=== PATIENT | male | born 1940 | race African-American/Black ===

== ENCOUNTER 2018-01-08 15:27 | Inpatient (IN) | payer MEDICARE, MEDICAID ==
[~2018-01-08] VITALS: Ht 182.9 cm; Wt 90.7 kg
[2018-01-08] VITALS (7 sets, daily range): BP systolic 86–129; BP diastolic 51–96
--- NOTE | 2018-01-08 15:37 | Emergency Room Report ---
History of Present Illness General Chief Complaint: Altered Level of Consciousness Source: Patient, EMS Present Illness HPI The patient presents with decreased level of consciousness. Allegedly he fell but EMS allege that at [facility] they claim he was assisted to the ground. They found him with snoring respirations and decreased responsiveness. He was given 2 mg of Narcan in the field. Accu-Chek was 111. His respirations improved is also his level of consciousness. They also found a blood pressure of 80 systolic and gave him a fluid bolus. Twelve-lead showed no injury. The patient admits to taking pain medication. He denies having pain is this time. The patient has a history of schizophrenia and is on psychiatric medications and also medicines for high blood pressure. No NVD, dyspnea, chest pain, dysuria, rashes, headache. Allergies: Coded Allergies: PENICILLINS (Verified Allergy, Unknown, 01/08/18) Patient History Past Medical History: see triage record Social History: Reports: smoking Social History Narrative assisted living Reviewed Nursing Documentation: PMH: Agreed, PSxH: Agreed Nursing Documentation-PMH Past Medical History: No History, Except For Hx Hypertension: Yes History Of Psychiatric Problem: Yes - schizophrenia, dementia Review of Systems All Other Systems: negative except mentioned in HPI - history somewhat suspect Physical Exam Vital Signs Date Time Temp Pulse Resp B/P (MAP) Pulse Ox O2 Delivery O2 Flow Rate FiO2 01/08/18 15:23 96.1 18 106/60 99 Room Air 96.1 Sp02 EP Interpretation: reviewed, normal General Appearance: well appearing, no apparent distress, GCS 15 Head: normocephalic, atraumatic Eyes: bilateral eye PERRL, bilateral eye Scleral Injection ENT: moist mucus membranes - poor dentition Neck: supple, no bony tend Respiratory: chest non-tender, lungs clear, normal breath sounds Cardiovascular #1: regular rate, rhythm Cardiovascular #2: 2+ radial (R) Gastrointestinal: normal inspection, normal bowel sounds, non tender, no mass, non-distended Musculoskeletal: back normal, normal range of motion Neurologic: alert, DTRs symmetric, sensory intact, speech normal, motor weakness - lower extremities bilaterally - no unilateral weakness, oriented - X2 Psychiatric: depressed affect Skin: normal inspection, warm/dry Medical Decision Making Diagnostic Impression: Primary Impression: Altered level of consciousness Additional Impressions: Hypotension Qualified Codes: I95.89 - Other hypotension Hypokalemia Renal insufficiency Elevated lactic acid level Elevated TSH ER Course Patient presents with altered level of consciousness improved with Narcan however he also was hypotensive. Differential includes head bleeds, acute myocardial infarction, sepsis, volume depletion, medication excess, acute bleeding amongst others. No unilateral weakness (LE weakness alleged chronic). Evaluation will be with EKG, CT of the head, chest x-ray and labs. He is afebrile and blood cultures are not ordered however lactate is ordered. The patient will be treated with IV hydration. He is alert at this time. Based on this event and the fact he was hypotensive he needs admission to the hospital. Response to narcan suggests narcotic involvement which needs to be corroborated with urine tox. Other causes of transient stupor include syncope from hypotension. No observed seizure. Due to schizophrenia, history is difficult to ascertain from patient. BP better with hydration. Elevated lactate. Patient without infectious source (urine pending). Patient refuses [place], cath or to give urine. Normal WBC, mild anemia (patient refuses rectal). Potassium low with renal insufficiency. Improved with IV hydration. Still denies pain. Patient admit telemetry, Dr. Howard. Urine late return with some pyuria, nitrite negative and positive ketosis. Laboratory Tests Test 01/08/18 15:50 01/08/18 16:15 01/08/18 19:20 Prothrombin Time 11.3 SEC (9.30-11.50) Prothrombin Time INR 1.1 (0.9-1.1) PTT 23 SEC (23-33) Sodium Level 144 MMOL/L (136-145) Potassium Level 2.9 MMOL/L (3.5-5.1) L Chloride Level 106 MMOL/L (98-107) Carbon Dioxide Level 28 MMOL/L (21-32) Anion Gap 10 mmol/L (5-15) Blood Urea Nitrogen 15 mg/dL (7-18) Creatinine 1.6 MG/DL (0.55-1.30) H Estimate Glomerular Filtration Rate mL/min (>60) Glucose Level 118 MG/DL (74-106) H Lactic Acid Level 4.30 mmol/L (0.66-2.22) H Pending Calcium Level 8.2 MG/DL (8.5-10.1) L Total Bilirubin 0.5 MG/DL (0.2-1.0) Aspartate Amino Transferase (AST) 55 U/L (15-37) H Alanine Aminotransferase (ALT) 48 U/L (12-78) Alkaline Phosphatase 60 U/L (46-116) Ammonia 27 umol/L (11-32) Total Creatine Kinase 189 U/L (26-308) Troponin I 0.021 ng/mL (0.000-0.056) Pro-B-Type Natriuretic Peptide 286 pg/mL (0-125) H Total Protein 6.9 G/DL (6.4-8.2) Albumin 2.9 G/DL (3.4-5.0) L Globulin 4.0 g/dL Albumin/Globulin Ratio 0.7 (1.0-2.7) L Thyroid Stimulating Hormone (TSH) 5.838 uiU/mL (0.358-3.740) Salicylates Level 2.2 ug/mL (2.8-20) L Acetaminophen Level < 2 MCG/ML (10-30) L Serum Alcohol < 3 mg/dL White Blood Count 8.6 K/UL (4.8-10.8) Red Blood Count 4.05 M/UL (4.70-6.10) L Hemoglobin 12.9 G/DL (14.2-18.0) L Hematocrit 38.5 % (42.0-52.0) L Mean Corpuscular Volume 95 FL (80-99) Mean Corpuscular Hemoglobin 31.7 PG (27.0-31.0) H Mean Corpuscular Hemoglobin Concent 33.4 G/DL (32.0-36.0) Red Cell Distribution Width 12.0 % (11.6-14.8) Platelet Count 173 K/UL (150-450) Mean Platelet Volume 6.8 FL (6.5-10.1) Neutrophils (%) (Auto) 82.2 % (45.0-75.0) H Lymphocytes (%) (Auto) 10.1 % (20.0-45.0) L Monocytes (%) (Auto) 7.3 % (1.0-10.0) Eosinophils (%) (Auto) 0.2 % (0.0-3.0) Basophils (%) (Auto) 0.3 % (0.0-2.0) EKG Diagnostic Results Rate: normal Rhythm: NSR ST Segments: no acute changes Rhythm Strip Diag. Results EP Interpretation: yes Rhythm: NSR, no PVC's, no ectopy Chest X-Ray Diagnostic Results Chest X-Ray Diagnostic Results : Chest X-Ray Ordered: Yes # of Views/Limited/Complete: 1 View Indication: Other EP Interpretation: Yes Interpretation: no consolidation, no effusion, no pneumothorax Impression: Other Electronically Signed by: Electronically signed by Nash Correa MD CT/MRI/US Diagnostic Results CT/MRI/US Diagnostic Results : Imaging Test Ordered: head Impression no mass, bleed or fx Last Vital Signs Date Time Temp Pulse Resp B/P (MAP) Pulse Ox O2 Delivery O2 Flow Rate FiO2 01/09/18 00:00 99.0 94 20 127/78 95 Room Air 99.0 Status: improved Disposition: ADMITTED INPATIENT Condition: Serious Nash Correa M.D. Jan 08, 2018 15:37
[2018-01-08] MEDS ORDERED: VITAMIN D1000 UNI1 ORAL (15:43)
[2018-01-08] MEDS ORDERED: RISPERDAL2 MG ORAL (15:43)
[2018-01-08] MEDS ORDERED: METFORMIN HCL500 M1 ORAL (15:43)
[2018-01-08] MEDS ORDERED: AMLODIPINE BES2.5 MG ORAL (15:43)
[2018-01-08] MEDS ORDERED: ASPIR-LOW81 MG ORAL (15:43)
[2018-01-08] MEDS ORDERED: DOCUSATE SODIU100 MG ORAL (15:43)
[2018-01-08 16:22] LABS: INR 1.1 (0.9-1.1)
[2018-01-08 16:26] LABS: ANION GAP 10 mmol/L (5-15); BLOOD UREA NITROGEN 15 mg/dL (7-18); CALCIUM 8.2 MG/DL (8.5-10.1); CARBON DIOXIDE 28 MMOL/L (21-32); CHLORIDE 106 MMOL/L (98-107); CREATININE 1.6 MG/DL (0.55-1.30); POTASSIUM 2.9 MMOL/L (3.5-5.1); SODIUM 144 MMOL/L (136-145)
[2018-01-08 16:29] LABS: AMMONIA 27 umol/L (11-32)
[2018-01-08 16:38] LABS: BASOPHILS % (AUTO) 0.3 % (0.0-2.0); EOSINOPHILS % (AUTO) 0.2 % (0.0-3.0); HEMATOCRIT 38.5 % (42.0-52.0); HEMOGLOBIN 12.9 G/DL (14.2-18.0); LYMPHOCYTES % (AUTO) 10.1 % (20.0-45.0); MEAN CORPUSCULAR VOLUME 95 FL (80-99); MONOCYTES % (AUTO) 7.3 % (1.0-10.0); NEUTROPHILS % (AUTO) 82.2 % (45.0-75.0); PLATELET COUNT 173 K/UL (150-450); RED BLOOD COUNT 4.05 M/UL (4.70-6.10); WHITE BLOOD COUNT 8.6 K/UL (4.8-10.8)
[2018-01-08 16:38] LABS: ALANINE AMINOTRANSFERASE 48 U/L (12-78); ALBUMIN 2.9 G/DL (3.4-5.0); ALBUMIN/GLOBULIN RATIO 0.7 (1.0-2.7); ALKALINE PHOSPHATASE 60 U/L (46-116); ASPARTATE AMINO TRANSFERASE 55 U/L (15-37); BILIRUBIN,TOTAL 0.5 MG/DL (0.2-1.0); CREATINE KINASE 189 U/L (26-308)
[2018-01-08] MEDS ORDERED: Miralax 17gm pkt ORAL PRN (21:15)
[2018-01-08] MEDS ORDERED: Morphine Sulfate 2mg/ml Inj IVP PRN (21:15)
[2018-01-08] MEDS ORDERED: Mylanta II UD 30ml ORAL PRN (21:15)
[2018-01-08] MEDS ORDERED: LORazepam Inj 2mg/ml 1ml IV PRN (21:15)
[2018-01-08] MEDS ORDERED: Zolpidem 5mg tab ORAL PRN (21:15)
[2018-01-09] VITALS: BP 127/78
[2018-01-09 02:24] LABS: APPEARANCE,URINE CLEAR; BILIRUBIN, URINE NEGATIVE (NEGATIVE); COLOR,URINE BROWN; GLUCOSE, URINE (UA) 1+ (NEGATIVE); KETONES,URINE 2+ (NEGATIVE); LEUKOCYTE ESTERASE ,URINE 1+ (NEGATIVE); NITRITE,URINE NEGATIVE (NEGATIVE); PH,URINE 5 (4.5-8.0); PROTEIN,URINE 1+ (NEGATIVE); UROBILINOGEN,URINE 4 MG/DL (0.0-1.0)
[2018-01-09 04:00] VITALS: BP 131/81
[2018-01-09] MEDS: NovoLOG Insulin Flexpen SUBQ SCH ×4 (06:30→21:00)
[2018-01-09 08:00] VITALS: BP 117/74
[2018-01-09 08:05] LABS: BASOPHILS % (AUTO) 0.4 % (0.0-2.0); EOSINOPHILS % (AUTO) 0.7 % (0.0-3.0); HEMATOCRIT 33.8 % (42.0-52.0); HEMOGLOBIN 11.5 G/DL (14.2-18.0); LYMPHOCYTES % (AUTO) 34.7 % (20.0-45.0); MEAN CORPUSCULAR VOLUME 95 FL (80-99); MONOCYTES % (AUTO) 10.7 % (1.0-10.0); NEUTROPHILS % (AUTO) 53.5 % (45.0-75.0); PLATELET COUNT 153 K/UL (150-450); RED BLOOD COUNT 3.58 M/UL (4.70-6.10); RED CELL DISTRIBUTION WIDTH 11.9 % (11.6-14.8); WHITE BLOOD COUNT 5.4 K/UL (4.8-10.8)
[2018-01-09 08:28] LABS: ALANINE AMINOTRANSFERASE 43 U/L (12-78); ALBUMIN 2.7 G/DL (3.4-5.0); ALBUMIN/GLOBULIN RATIO 0.7 (1.0-2.7); ALKALINE PHOSPHATASE 55 U/L (46-116); ANION GAP 8 mmol/L (5-15); ASPARTATE AMINO TRANSFERASE 49 U/L (15-37); BILIRUBIN,TOTAL 0.5 MG/DL (0.2-1.0); BLOOD UREA NITROGEN 16 mg/dL (7-18); CALCIUM 8.2 MG/DL (8.5-10.1); CARBON DIOXIDE 28 MMOL/L (21-32); CHLORIDE 104 MMOL/L (98-107); CHOLESTEROL 109 MG/DL (< 200); CREATININE 0.8 MG/DL (0.55-1.30); HDL CHOLESTEROL 43 MG/DL (40-60); POTASSIUM 3.1 MMOL/L (3.5-5.1); SODIUM 140 MMOL/L (136-145); TRIGLYCERIDES 25 MG/DL (30-150)
[2018-01-09] MEDS: Heparin 5000 units/ml inj SUBQ SCH ×2 (09:00→21:00)
--- NOTE | 2018-01-09 09:06 | Diagnostic Imaging Report ---
Indication: Altered level of consciousness Technique: One view of the chest Comparison: none Findings: Pleural and parenchymal opacities are seen in the left lung base. This may represent infiltrate with pleural fluid. However the presence of some calcification in the pleural space indicates a possible chronic component as well. There also appears to be some volume loss The left upper lung, right lung pleural space are clear. Heart size is normal. Impression: Left basilar pleural and parenchymal disease, acuity indeterminate, could represent acute infiltrate and pleural fluid. However, presence of pleural calcification suggests a chronic component as well. Correlate with clinical findings Arteriogram agrees ER prelim
--- NOTE | 2018-01-09 09:09 | Diagnostic Imaging Report ---
Indications: Altered level of consciousness Technique: Spiral acquisitions obtained through the brain. Angled axial and coronal 5 x 5 mm slices were reconstructed. Total dose length product 1435.85 mGycm. CTDI vol(s) 70.38 mGy. Dose reduction achieved using automated exposure control Comparison: None. 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 No acute intracranial hemorrhage or edema, mass effect, nor midline shift. There is mild age-related enlargement of the ventricles and extra-axial CSF spaces. There is periventricular deep white matter chronic ischemic change. There is minimal mucosal thickening of the left maxillary sinus. 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 The CT scanner at [facility] is accredited by the [employer] and the scans are performed using protocols designed to limit radiation exposure to as low as reasonably achievable to attain images of sufficient resolution adequate for diagnostic evaluation.
--- NOTE | 2018-01-09 11:35 | Neurology Progress Note ---
Objective Physical Exam Last Vital Signs Date Time Temp Pulse Resp B/P (MAP) Pulse Ox O2 Delivery O2 Flow Rate FiO2 01/09/18 08:00 98.1 98 18 117/74 95 Room Air 98.1 Laboratory Tests Test 01/08/18 15:50 01/08/18 16:15 01/08/18 19:20 01/09/18 01:28 Prothrombin Time 11.3 SEC (9.30-11.50) Prothromb Time International Ratio 1.1 (0.9-1.1) Activated Partial Thromboplast Time 23 SEC (23-33) Sodium Level 144 MMOL/L (136-145) Potassium Level 2.9 MMOL/L (3.5-5.1) L Chloride Level 106 MMOL/L (98-107) Carbon Dioxide Level 28 MMOL/L (21-32) Anion Gap 10 mmol/L (5-15) Blood Urea Nitrogen 15 mg/dL (7-18) Creatinine 1.6 MG/DL (0.55-1.30) H Estimat Glomerular Filtration Rate mL/min (>60) Glucose Level 118 MG/DL (74-106) H Lactic Acid Level 4.30 mmol/L (0.66-2.22) H 1.50 mmol/L (0.66-2.22) Calcium Level 8.2 MG/DL (8.5-10.1) L Total Bilirubin 0.5 MG/DL (0.2-1.0) Aspartate Amino Transf (AST/SGOT) 55 U/L (15-37) H Alanine Aminotransferase (ALT/SGPT) 48 U/L (12-78) Alkaline Phosphatase 60 U/L (46-116) Ammonia 27 umol/L (11-32) Total Creatine Kinase 189 U/L (26-308) Troponin I 0.021 ng/mL (0.000-0.056) Pro-B-Type Natriuretic Peptide 286 pg/mL (0-125) H Total Protein 6.9 G/DL (6.4-8.2) Albumin 2.9 G/DL (3.4-5.0) L Globulin 4.0 g/dL Albumin/Globulin Ratio 0.7 (1.0-2.7) L Thyroid Stimulating Hormone (TSH) 5.838 uiU/mL (0.358-3.740) Salicylates Level 2.2 ug/mL (2.8-20) L Acetaminophen Level < 2 MCG/ML (10-30) L Serum Alcohol < 3 mg/dL White Blood Count 8.6 K/UL (4.8-10.8) Red Blood Count 4.05 M/UL (4.70-6.10) L Hemoglobin 12.9 G/DL (14.2-18.0) L Hematocrit 38.5 % (42.0-52.0) L Mean Corpuscular Volume 95 FL (80-99) Mean Corpuscular Hemoglobin 31.7 PG (27.0-31.0) H Mean Corpuscular Hemoglobin Concent 33.4 G/DL (32.0-36.0) Red Cell Distribution Width 12.0 % (11.6-14.8) Platelet Count 173 K/UL (150-450) Mean Platelet Volume 6.8 FL (6.5-10.1) Neutrophils (%) (Auto) 82.2 % (45.0-75.0) H Lymphocytes (%) (Auto) 10.1 % (20.0-45.0) L Monocytes (%) (Auto) 7.3 % (1.0-10.0) Eosinophils (%) (Auto) 0.2 % (0.0-3.0) Basophils (%) (Auto) 0.3 % (0.0-2.0) Urine Color Brown Urine Appearance Clear Urine pH 5 (4.5-8.0) Urine Specific [place] 1.020 (1.005-1.035) Urine Protein 1+ (NEGATIVE) H Urine Glucose (UA) 1+ (NEGATIVE) H Urine Ketones 2+ (NEGATIVE) H Urine Occult Blood Negative (NEGATIVE) Urine Nitrite Negative (NEGATIVE) Urine Bilirubin Negative (NEGATIVE) Urine Urobilinogen 4 MG/DL (0.0-1.0) H Urine Leukocyte Esterase 1+ (NEGATIVE) H Urine RBC 0-2 /HPF (0 - 0) H Urine WBC 5-10 /HPF (0 - 0) H Urine Squamous Epithelial Cells Few /LPF (NONE/OCC) Urine Bacteria Few /HPF (NONE) Urine Mucus Few /LPF (NONE/OCC) H Urine Opiates Screen Negative (NEGATIVE) Urine Barbiturates Screen Negative (NEGATIVE) Phencyclidine (PCP) Screen Negative (NEGATIVE) Urine Amphetamines Screen Negative (NEGATIVE) Urine Benzodiazepines Screen Negative (NEGATIVE) Urine Cocaine Screen Negative (NEGATIVE) Urine Marijuana (THC) Screen Negative (NEGATIVE) Test 01/09/18 06:25 White Blood Count 5.4 K/UL (4.8-10.8) Red Blood Count 3.58 M/UL (4.70-6.10) L Hemoglobin 11.5 G/DL (14.2-18.0) L Hematocrit 33.8 % (42.0-52.0) L Mean Corpuscular Volume 95 FL (80-99) Mean Corpuscular Hemoglobin 32.1 PG (27.0-31.0) H Mean Corpuscular Hemoglobin Concent 33.9 G/DL (32.0-36.0) Red Cell Distribution Width 11.9 % (11.6-14.8) Platelet Count 153 K/UL (150-450) Mean Platelet Volume 7.0 FL (6.5-10.1) Neutrophils (%) (Auto) 53.5 % (45.0-75.0) Lymphocytes (%) (Auto) 34.7 % (20.0-45.0) Monocytes (%) (Auto) 10.7 % (1.0-10.0) H Eosinophils (%) (Auto) 0.7 % (0.0-3.0) Basophils (%) (Auto) 0.4 % (0.0-2.0) Sodium Level 140 MMOL/L (136-145) Potassium Level 3.1 MMOL/L (3.5-5.1) L Chloride Level 104 MMOL/L (98-107) Carbon Dioxide Level 28 MMOL/L (21-32) Anion Gap 8 mmol/L (5-15) Blood Urea Nitrogen 16 mg/dL (7-18) Creatinine 0.8 MG/DL (0.55-1.30) Estimat Glomerular Filtration Rate mL/min (>60) Glucose Level 73 MG/DL (74-106) L Calcium Level 8.2 MG/DL (8.5-10.1) L Total Bilirubin 0.5 MG/DL (0.2-1.0) Aspartate Amino Transf (AST/SGOT) 49 U/L (15-37) H Alanine Aminotransferase (ALT/SGPT) 43 U/L (12-78) Alkaline Phosphatase 55 U/L (46-116) Total Protein 6.5 G/DL (6.4-8.2) Albumin 2.7 G/DL (3.4-5.0) L Globulin 3.8 g/dL Albumin/Globulin Ratio 0.7 (1.0-2.7) L Triglycerides Level 25 MG/DL (30-150) L Cholesterol Level 109 MG/DL (< 200) LDL Cholesterol 68 mg/dL (<100) HDL Cholesterol 43 MG/DL (40-60) Cholesterol/HDL Ratio 2.5 (3.3-4.4) L Impression/Recommendations Recommendations #[id number] CHRISTINE SUTTON Jan 09, 2018 11:35
[2018-01-09 12:00] VITALS: BP 128/81
--- NOTE | 2018-01-09 12:34 | Consultation ---
History of Present Illness General Date patient seen: Jan 09, 2018 Chief Complaint: Altered Level of Consciousness Reason for Consultation: pleural effusion Present Illness HPI 77 year old male with hx of Dementia, psychosis, DM, from an assisted living facility presented with paramedics with CC of decreased level of consciousness. He was found snoring and decreased responsiveness. He was given 2 mg of Narcan in the field. Accu-Chek was 111. His respirations improved is also his level of consciousness. They also found a blood pressure of 80 systolic and gave him a fluid bolus. He is admitted to telemetry for further w/u. He had L pleural effusion and parenchymal changes. I was asked to evaluate these findings. Allergies: Coded Allergies: PENICILLINS (Verified Allergy, Unknown, 01/08/18) Medication History Scheduled Amlodipine Besylate* (Amlodipine Besylate*), 2.5 MG ORAL DAILY, (Reported) Aspirin* (Aspir-Low*), 81 MG ORAL DAILY, (Reported) Cholecalciferol (Vitamin D3)* (Vitamin D*), 1,000 UNIT ORAL DAILY, (Reported) Docusate Sodium* (Docusate Sodium*), 100 MG ORAL TWICE A DAY, (Reported) Metformin Hcl* (Metformin Hcl*), 500 MG ORAL TWICE A DAY, (Reported) Risperidone* (Risperdal*), 3 MG ORAL BID, (Reported) Patient History Healthcare decision maker Resuscitation status Full Code Advanced Directive on File Past Medical/Surgical History Past Medical/Surgical History: (1) Psychosis (2) Diabetes mellitus Review of Systems All Other Systems: negative except mentioned in HPI Physical Exam Lines, tubes and drains: peripheral HEENT: normocephalic, atraumatic, anicteric Neck: normal alignment, supple, normal inspection Respiratory/Chest: chest wall non-tender, lungs clear, normal breath sounds Cardiovascular/Chest: normal rate, regular rhythm, no JVD Abdomen: normal bowel sounds Genitourinary/Rectal: normal genital exam, normal rectal exam Last 24 Hour Vital Signs Date Time Temp Pulse Resp B/P (MAP) Pulse Ox O2 Delivery O2 Flow Rate FiO2 01/09/18 08:00 98.1 98 18 117/74 95 Room Air 98.1 01/09/18 04:00 74 01/09/18 04:00 97.7 77 20 131/81 97 Room Air 97.7 01/09/18 00:00 99.0 94 20 127/78 95 Room Air 99.0 01/09/18 00:00 99 01/08/18 23:20 93 01/08/18 22:44 98.0 87 18 98/57 97 Room Air 98.0 01/08/18 22:09 98.0 87 18 98/57 97 Room Air 98.0 01/08/18 20:58 97.8 90 18 101/69 97 Room Air 97.8 01/08/18 19:25 97.8 83 18 129/96 97 Room Air 97.8 01/08/18 18:36 97.8 85 18 116/62 95 Room Air 97.8 01/08/18 17:22 97.8 78 13 115/64 95 Room Air 97.8 01/08/18 16:13 96.1 79 14 86/53 98 Room Air 96.1 01/08/18 15:33 96.1 78 13 89/51 100 Room Air 96.1 01/08/18 15:23 96.1 18 106/60 99 Room Air 96.1 Intake and Output 01/08/18 01/09/18 19:00 07:00 Intake Total 0 ml 2080 ml Output Total 400 ml Balance 0 ml 1680 ml Intake Oral 0 ml 480 ml IV Total 1600 ml Output Urine Total 400 ml # Voids 3 Laboratory Tests Test 01/08/18 15:50 01/08/18 16:15 01/08/18 19:20 01/09/18 01:28 Prothrombin Time 11.3 SEC (9.30-11.50) Prothromb Time International Ratio 1.1 (0.9-1.1) Activated Partial Thromboplast Time 23 SEC (23-33) Sodium Level 144 MMOL/L (136-145) Potassium Level 2.9 MMOL/L (3.5-5.1) L Chloride Level 106 MMOL/L (98-107) Carbon Dioxide Level 28 MMOL/L (21-32) Anion Gap 10 mmol/L (5-15) Blood Urea Nitrogen 15 mg/dL (7-18) Creatinine 1.6 MG/DL (0.55-1.30) H Estimat Glomerular Filtration Rate mL/min (>60) Glucose Level 118 MG/DL (74-106) H Lactic Acid Level 4.30 mmol/L (0.66-2.22) H 1.50 mmol/L (0.66-2.22) Calcium Level 8.2 MG/DL (8.5-10.1) L Total Bilirubin 0.5 MG/DL (0.2-1.0) Aspartate Amino Transf (AST/SGOT) 55 U/L (15-37) H Alanine Aminotransferase (ALT/SGPT) 48 U/L (12-78) Alkaline Phosphatase 60 U/L (46-116) Ammonia 27 umol/L (11-32) Total Creatine Kinase 189 U/L (26-308) Troponin I 0.021 ng/mL (0.000-0.056) Pro-B-Type Natriuretic Peptide 286 pg/mL (0-125) H Total Protein 6.9 G/DL (6.4-8.2) Albumin 2.9 G/DL (3.4-5.0) L Globulin 4.0 g/dL Albumin/Globulin Ratio 0.7 (1.0-2.7) L Thyroid Stimulating Hormone (TSH) 5.838 uiU/mL (0.358-3.740) Salicylates Level 2.2 ug/mL (2.8-20) L Acetaminophen Level < 2 MCG/ML (10-30) L Serum Alcohol < 3 mg/dL White Blood Count 8.6 K/UL (4.8-10.8) Red Blood Count 4.05 M/UL (4.70-6.10) L Hemoglobin 12.9 G/DL (14.2-18.0) L Hematocrit 38.5 % (42.0-52.0) L Mean Corpuscular Volume 95 FL (80-99) Mean Corpuscular Hemoglobin 31.7 PG (27.0-31.0) H Mean Corpuscular Hemoglobin Concent 33.4 G/DL (32.0-36.0) Red Cell Distribution Width 12.0 % (11.6-14.8) Platelet Count 173 K/UL (150-450) Mean Platelet Volume 6.8 FL (6.5-10.1) Neutrophils (%) (Auto) 82.2 % (45.0-75.0) H Lymphocytes (%) (Auto) 10.1 % (20.0-45.0) L Monocytes (%) (Auto) 7.3 % (1.0-10.0) Eosinophils (%) (Auto) 0.2 % (0.0-3.0) Basophils (%) (Auto) 0.3 % (0.0-2.0) Urine Color Brown Urine Appearance Clear Urine pH 5 (4.5-8.0) Urine Specific [place] 1.020 (1.005-1.035) Urine Protein 1+ (NEGATIVE) H Urine Glucose (UA) 1+ (NEGATIVE) H Urine Ketones 2+ (NEGATIVE) H Urine Occult Blood Negative (NEGATIVE) Urine Nitrite Negative (NEGATIVE) Urine Bilirubin Negative (NEGATIVE) Urine Urobilinogen 4 MG/DL (0.0-1.0) H Urine Leukocyte Esterase 1+ (NEGATIVE) H Urine RBC 0-2 /HPF (0 - 0) H Urine WBC 5-10 /HPF (0 - 0) H Urine Squamous Epithelial Cells Few /LPF (NONE/OCC) Urine Bacteria Few /HPF (NONE) Urine Mucus Few /LPF (NONE/OCC) H Urine Opiates Screen Negative (NEGATIVE) Urine Barbiturates Screen Negative (NEGATIVE) Phencyclidine (PCP) Screen Negative (NEGATIVE) Urine Amphetamines Screen Negative (NEGATIVE) Urine Benzodiazepines Screen Negative (NEGATIVE) Urine Cocaine Screen Negative (NEGATIVE) Urine Marijuana (THC) Screen Negative (NEGATIVE) Test 01/09/18 06:25 White Blood Count 5.4 K/UL (4.8-10.8) Red Blood Count 3.58 M/UL (4.70-6.10) L Hemoglobin 11.5 G/DL (14.2-18.0) L Hematocrit 33.8 % (42.0-52.0) L Mean Corpuscular Volume 95 FL (80-99) Mean Corpuscular Hemoglobin 32.1 PG (27.0-31.0) H Mean Corpuscular Hemoglobin Concent 33.9 G/DL (32.0-36.0) Red Cell Distribution Width 11.9 % (11.6-14.8) Platelet Count 153 K/UL (150-450) Mean Platelet Volume 7.0 FL (6.5-10.1) Neutrophils (%) (Auto) 53.5 % (45.0-75.0) Lymphocytes (%) (Auto) 34.7 % (20.0-45.0) Monocytes (%) (Auto) 10.7 % (1.0-10.0) H Eosinophils (%) (Auto) 0.7 % (0.0-3.0) Basophils (%) (Auto) 0.4 % (0.0-2.0) Sodium Level 140 MMOL/L (136-145) Potassium Level 3.1 MMOL/L (3.5-5.1) L Chloride Level 104 MMOL/L (98-107) Carbon Dioxide Level 28 MMOL/L (21-32) Anion Gap 8 mmol/L (5-15) Blood Urea Nitrogen 16 mg/dL (7-18) Creatinine 0.8 MG/DL (0.55-1.30) Estimat Glomerular Filtration Rate mL/min (>60) Glucose Level 73 MG/DL (74-106) L Calcium Level 8.2 MG/DL (8.5-10.1) L Total Bilirubin 0.5 MG/DL (0.2-1.0) Aspartate Amino Transf (AST/SGOT) 49 U/L (15-37) H Alanine Aminotransferase (ALT/SGPT) 43 U/L (12-78) Alkaline Phosphatase 55 U/L (46-116) Total Protein 6.5 G/DL (6.4-8.2) Albumin 2.7 G/DL (3.4-5.0) L Globulin 3.8 g/dL Albumin/Globulin Ratio 0.7 (1.0-2.7) L Triglycerides Level 25 MG/DL (30-150) L Cholesterol Level 109 MG/DL (< 200) LDL Cholesterol 68 mg/dL (<100) HDL Cholesterol 43 MG/DL (40-60) Cholesterol/HDL Ratio 2.5 (3.3-4.4) L Height (Feet): 6 Height (Inches): 0.00 Weight (Pounds): 200 Medications Current Medications Medications (Trade) Dose Ordered Sig/Dilia Route PRN Reason Start Time Stop Time Status Last Admin Dose Admin Acetaminophen (Tylenol) 650 mg Q4H PRN ORAL fever 01/08/18 21:15 02/07/18 21:14 Al Hydroxide/Mg Hydroxide (Mylanta II) 30 ml Q6H PRN ORAL dyspepsia 01/08/18 21:15 02/07/18 21:14 Dextrose (Dextrose 50%) STAT PRN IV Hypoglycemia 01/08/18 21:15 4/17/18 21:14 Dextrose (Dextrose 50%) STAT PRN IV Hypoglycemia 01/08/18 21:15 02/07/18 21:14 Divalproex Sodium (Depakote) 250 mg EVERY 12 HOURS ORAL 01/09/18 12:00 02/08/18 11:59 01/09/18 12:12 Heparin Sodium (Porcine) (Heparin 5000 units/ml) 5,000 units EVERY 12 HOURS SUBQ 01/09/18 09:00 02/08/18 08:59 01/09/18 09:00 Insulin Aspart (NovoLOG) BEFORE MEALS AND HS SUBQ 01/09/18 06:30 02/08/18 06:29 Lorazepam (Ativan 2mg/ml 1ml) 0.5 mg Q4H PRN IV For Anxiety 01/08/18 21:15 01/15/18 21:14 Ondansetron HCl (Zofran) 4 mg Q6H PRN IVP Nausea & Vomiting 01/08/18 21:15 02/07/18 21:14 Polyethylene Glycol (Miralax) 17 gm HSPRN PRN ORAL Constipation 01/08/18 21:15 02/07/18 21:14 Risperidone (RisperDAL) 3 mg BID ORAL 01/09/18 09:00 02/08/18 08:59 01/09/18 08:56 Zolpidem Tartrate (Ambien) 5 mg HSPRN PRN ORAL Insomnia 01/08/18 21:15 01/15/18 21:14 Assessment/Plan Problem List: (1) Pleural effusion, left ICD Codes: J90 - Pleural effusion, not elsewhere classified SNOMED: 05912301 (2) Altered level of consciousness ICD Codes: R40.4 - Transient alteration of awareness SNOMED: 4058125 (3) Renal insufficiency ICD Codes: N28.9 - Disorder of kidney and ureter, unspecified SNOMED: 061905734, 501361524 (4) Hypotension ICD Codes: I95.9 - Hypotension, unspecified SNOMED: 37650266 Qualifiers: Qualified Codes: I95.89 - Other hypotension (5) Diabetes mellitus ICD Codes: E11.9 - Type 2 diabetes mellitus without complications SNOMED: 55660022 Assessment/Plan psych and neuro evaluation sliding scale and diabetic diet f/u BNP, echocardiogram respiratory treatment Rosalinda Edouard MD Jan 09, 2018 12:34
[2018-01-09 16:00] VITALS: BP 149/90
--- NOTE | 2018-01-09 18:30 | Consultation ---
DATE OF CONSULTATION: 01/09/2018 NEUROLOGICAL CONSULTATION CONSULTING PHYSICIAN: Marvin Hunt M.D. REQUESTING PHYSICIAN: Kalpehs Howard D.O. HISTORY OF PRESENT ILLNESS: This is a 77 years old male seen in neurological consultation to evaluate the transient unresponsiveness. The patient indicated that he was at his facility, after having lunch, then next he remembered he was found himself in the hospital. According to paramedics, who were called to the scene, he was found on the ground, pinpoint pupils. He was given a 2 mg Narcan, responses improved, still remained confused with Hol[place]el coma scale of 12. He was given fluid challenge. Blood pressure improved. His initial blood pressure was 82/52 and heart rate of 72, respirations 6. The patient was taken to emergency room. His Accu-Chek was 111. His respirations improved as well as level of consciousness. EKG 12-lead showed no ischemic changes. The patient on his arrival admitted to have pain medications and I take 10 pills at once for my condition. His blood pressure went up to 106/60, pulse oximetry 99%, and temperature 96.1. His examination was normal except weakness in both lower extremities. Depressed affect. 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 Chest x-ray, left basilar pleural and parenchymal disease, acute effusion indeterminate, but may represent acute infiltrate and pleural fluid. Lab work included a CBC study with hemoglobin 12.9, hematocrit 38.5. Coagulation panel was normal. Urinalysis, 5 to 10 wbc's, 1+ leukocyte esterase, 1+ protein. Chemistry panel with creatinine 1.6, potassium 2.9, AST 55. BNP 286. TSH 5.836. Toxicology panel was negative. CURRENT MEDICATIONS: Treatment list was amlodipine, aspirin, vitamin D, docusate, metformin, and Risperdal 3 mg b.i.d. PAST MEDICAL HISTORY: The patient has a history of schizophrenia, dementia, hyperlipidemia, and hypertension. Apparently, the patient did have craniotomy in the past, although he is unable to explain why. He was told in the past that he had seizures. No anticonvulsant given though. Since admission till present, the patient's condition improved. He became fully awake and ambulating properly. A 2D echocardiogram revealed no evidence of mural thrombi, ejection fraction is 60% to 65%. SOCIAL HISTORY: He is a resident of nursing facility. Denies alcohol or drug abuse. REVIEW OF SYMPTOMS: Currently, he feels well. No complaints. No headache. No dizziness. No chest pain. No palpitations. No unilateral weakness or numbness. No urine or bowel incontinence. PHYSICAL EXAMINATION: GENERAL: A well-developed, well-nourished man, not in acute distress. VITAL SIGNS: Stable. HEENT: Head, normocephalic. There is a post craniotomy defect. NECK: Supple. No meningeal signs. MUSCULOSKELETAL: Unremarkable. There are no deformities. Peripheral pulses 1+ symmetric. MENTAL STATUS: He is alert and oriented x2. His speech is fluent with no evidence of aphasia. Emotionally inappropriate, at one point, he pulled out the IV line demonstrating his blood coming. CRANIAL NERVE II: Pupils both responding to light and accommodation. Extraocular movements intact. No nystagmus. CRANIAL NERVE V: Normal corneal responses. CRANIAL NERVE VII: No facial asymmetry. CRANIAL NERVE VIII: Normal hearing. CRANIAL NERVES IX THROUGH XII: Tongue is in midline. Symmetric palate elevation. MOTOR EXAMINATION: Normal muscle tone. Strength 5/5 in all extremities. No involuntary movement. Deep tendon reflexes 1+ symmetric with downgoing toes on both sides. SENSORY EXAM: Normal to pinprick and light touch. Gait is stable. IMPRESSION: 1. History of transient syncopal episode with protracted amnesia, rule out a seizure activity, rule out a drug-induced encephalopathy. 2. Chronic psychiatric disorder. 3. Hypertension. 4. Hyperlipidemia. 5. Status post craniotomy. DISCUSSION: The patient at this time has no lateralizing neurological deficit except changes in mental status related to a psychiatric disorder and some cognitive dysfunction. I wish this could be contributed by extensive ischemic cerebrovascular disease, most likely related to underlying hypertension/hyperlipidemia. The patient is unaware of having craniotomy, but CT scan of the brain did demonstrate presence of medina hole, which may represent a craniotomy for subdural hematoma in the past. The patient recalled being told that he did have seizures in the past, but currently he is not on anticonvulsants. I will obtain electroencephalogram. I would suggest that Depakote will be added to the regimen as an antipsychotic, but also anticonvulsive effect. The patient responded well to Narcan, which is suggestive of use of narcotics. For this reason, no opiates to be given. Thank you for allowing me to see this interesting patient in neurological consultation. Marvin Hunt M.D. DR: BEAR JOB#: [id number] CC:
--- NOTE | 2018-01-09 19:30 | History and Physical Report ---
DATE OF ADMISSION: 01/08/2018 CONSULTANTS: 1. Rosalinda Edouard M.D. 2. Bryce Cabezas M.D. 3. Marvin Hunt M.D. CHIEF COMPLAINT: Altered level of consciousness, hypotension, and shortness of breath. BRIEF HISTORY: The patient is a 77-year-old male from [facility], presented with the above-mentioned diagnoses, was admitted to telemetry for further care. Currently calm, sitting. No complaint. No chest pain. Slight short of breath. No nausea, vomiting, or diarrhea. PAST MEDICAL HISTORY: Diabetes, pleural effusion, and psychosis. PAST SURGICAL HISTORY: None. MEDICATIONS: Norvasc, Depakote, Risperdal, NovoLog, MiraLAX, Zofran, losartan, aluminum hydroxide, and Tylenol. ALLERGIES: Penicillin. SOCIAL HISTORY: Positive smoke. No alcohol. No intravenous drug use. FAMILY HISTORY: Noncontributory. PHYSICAL EXAMINATION: GENERAL: Calm, sitting on bed, oriented x2, in no acute distress. VITAL SIGNS: Temperature is 98 degrees, pulse 98, respiratory rate 18, and blood pressure 117/74. CARDIOVASCULAR: No murmur. LUNGS: Distant. Poor exchange. ABDOMEN: Bowel sounds positive. Nontender. Nondistended. EXTREMITIES: No cyanosis, clubbing, or edema. NEUROLOGIC: The patient moves all extremities, slightly weak. LABORATORY AND DIAGNOSTIC DATA: Hemoglobin 11.5, otherwise, CBC is normal. BMP showed potassium 3.1 and glucose 73, BUN and creatinine 16 and 0.8. INR is 1.1 and PTT is 23. Urine toxicology, salicylate 8.2, otherwise, normal. Urinalysis showed 1+ leukocyte esterase. ASSESSMENT: 1. Altered level of consciousness. 2. Urinary tract infection. 3. Hypotension. 4. Anemia. 5. Shortness of breath. 6. Diabetes. 7. Pleural effusion. PLAN: Continue premedications. O2 and pulmonary treatment as needed. Antibiotics per Infectious Disease. OT/PT. Dietary evaluation. CBC and BMP in the morning. Resume home medications. Replace potassium p.r.n. Dr. Edouard, Dr. Cabezas, Dr. Hunt, Dr. Santizo, and Dr. Hogan to consult. Kalpesh Howard D.O. DR: LISA JOB#: [id number] CC:
[2018-01-09 20:00] VITALS: BP 138/78
[2018-01-10] VITALS: BP 140/92
[2018-01-10 04:00] VITALS: BP 134/83
--- NOTE | 2018-01-10 05:45 | Consultation ---
DATE OF CONSULTATION: 01/10/2018 INITIAL PSYCHIATRIC EVALUATION REQUESTING PHYSICIAN: Kalpesh Howard D.O. HISTORY OF PRESENT ILLNESS: This patient came into the [facility] secondary to altered mental status and hypotension, came in confused, disorganized, and disheveled and so there was a daily psychiatric consultation requested by the attending physician for these reasons. I saw and assessed this patient at bedside. He is confused and disorganized, but he says he is doing relatively well on Risperdal and would like to continue taking it, but he does have intermittent bouts of anxiety and agitation. SOCIAL HISTORY: The patient lives in [facility]. Financially supported by [id number] and [employer]. MEDICAL HISTORY: Diabetes and pleural effusion. PSYCHIATRIC HISTORY: History of schizoaffective bipolar type. There have been psychiatric admissions. SUBSTANCE ABUSE HISTORY: This patient is denying any history of any drug and alcohol use at this time. ALLERGIES: Allergies to penicillin. FAMILY PSYCHIATRIC HISTORY: Denies. STRENGTHS: He is moderately better. He has a place to live. WEAKNESSES: He is impulsive. MENTAL STATUS EXAMINATION: This is a 77-year-old male with psychomotor retardation. Mood is depressed. Affect guarded and restricted. Thought process, disorganized and illogical. Denies any current suicidal or homicidal thoughts. Appearance is disheveled. Irritable, agitated. Affect guarded and restricted. Intellect poor. Mood depressed and anxious. Motor activity, psychomotor agitation. Attention span is poor. Orientation x2. Speech is pressured. Thought process, disorganized and illogical. Thought content, auditory hallucinations and paranoid delusions. Insight and judgment is poor to fair. is poor. Description of delusions, delusions that people are following. PLAN: For this patient is to treat him with a medication regimen consisting of Risperdal at a dose of 3 mg twice a day and then also treat this patient with Depakote at a dose of 250 mg q.12 hours. Encourage this patient to interact appropriately with staff. The patient to continue Ativan 0.5 mg every four hours as needed anxiety and agitation. Chart is reviewed and discussed with staff. Seen and assessed at the bedside. I would like to thank, Dr. Kalpesh Howard, for this interesting consultation. The patient is seen and assessed at the bedside. Alexandra Santizo M.D. DR: SHA JOB#: [id number] CC:
[2018-01-10] MEDS: NovoLOG Insulin Flexpen SUBQ SCH ×4 (06:30→20:41)
[2018-01-10 08:00] VITALS: BP 146/92
--- NOTE | 2018-01-10 08:12 | General Progress Note ---
Progress Note Progress Note pateint seen and examined full consult dictated JESUS SHEPARD Jan 10, 2018 08:11
[2018-01-10 08:25] LABS: BASOPHILS % (AUTO) 0.7 % (0.0-2.0); EOSINOPHILS % (AUTO) 0.8 % (0.0-3.0); HEMATOCRIT 38.2 % (42.0-52.0); HEMOGLOBIN 12.9 G/DL (14.2-18.0); LYMPHOCYTES % (AUTO) 36.4 % (20.0-45.0); MEAN CORPUSCULAR VOLUME 95 FL (80-99); MONOCYTES % (AUTO) 11.8 % (1.0-10.0); NEUTROPHILS % (AUTO) 50.3 % (45.0-75.0); PLATELET COUNT 169 K/UL (150-450); RED BLOOD COUNT 4.01 M/UL (4.70-6.10); RED CELL DISTRIBUTION WIDTH 11.9 % (11.6-14.8); WHITE BLOOD COUNT 4.8 K/UL (4.8-10.8)
[2018-01-10] MEDS: Heparin 5000 units/ml inj SUBQ SCH ×2 (08:55→20:40)
[2018-01-10 09:08] LABS: ALANINE AMINOTRANSFERASE 52 U/L (12-78); ALBUMIN 3.3 G/DL (3.4-5.0); ALBUMIN/GLOBULIN RATIO 0.7 (1.0-2.7); ALKALINE PHOSPHATASE 62 U/L (46-116); ANION GAP 8 mmol/L (5-15); ASPARTATE AMINO TRANSFERASE 59 U/L (15-37); BILIRUBIN,TOTAL 0.6 MG/DL (0.2-1.0); BLOOD UREA NITROGEN 7 mg/dL (7-18); CALCIUM 8.7 MG/DL (8.5-10.1); CARBON DIOXIDE 31 MMOL/L (21-32); CHLORIDE 105 MMOL/L (98-107); CREATININE 0.7 MG/DL (0.55-1.30); POTASSIUM 3.2 MMOL/L (3.5-5.1); SODIUM 144 MMOL/L (136-145)
[2018-01-10] MEDS ORDERED: Potassium Chloride 40 MEQ in Sodium Chloride 500ML 550 ML IVPB ONE (10:30)
[2018-01-10 12:00] VITALS: BP 147/71
--- NOTE | 2018-01-10 13:40 | Pulmonology Progress Note ---
Assessment/Plan Problems: (1) Pleural effusion, left (2) Altered level of consciousness (3) Renal insufficiency (4) Hypotension (5) Diabetes mellitus Assessment/Plan effusion is not much to tab f/u clinically symptomatic treatment sliding scale f/u renal numbers and US dvt prophylaxis. Subjective ROS Limited/Unobtainable: No Constitutional: Reports: no symptoms Respiratory: Reports: no symptoms Cardiovascular: Reports: no symptoms Allergies: Coded Allergies: PENICILLINS (Verified Allergy, Unknown, 01/08/18) Objective Last 24 Hour Vital Signs Date Time Temp Pulse Resp B/P (MAP) Pulse Ox O2 Delivery O2 Flow Rate FiO2 01/10/18 12:00 94 01/10/18 08:53 79 146/92 01/10/18 08:00 96 01/10/18 08:00 98.3 79 18 146/92 95 Room Air 98.3 01/10/18 04:00 73 01/10/18 04:00 97.9 75 20 134/83 93 Room Air 97.9 01/10/18 00:00 73 01/10/18 00:00 98.1 77 20 140/92 95 Room Air 98.1 01/09/18 20:00 91 01/09/18 20:00 99.9 85 21 138/78 94 Room Air 99.9 01/09/18 16:00 108 01/09/18 16:00 98.2 108 20 149/90 98 Room Air 98.2 Intake and Output 01/09/18 01/10/18 19:00 07:00 Intake Total 600 ml Balance 600 ml Intake Oral 600 ml # Voids 3 3 Objective General Appearance: WD/WN Lines, tubes and drains: peripheral HEENT: normocephalic, atraumatic Neck: non-tender, normal alignment Respiratory/Chest: chest wall non-tender, lungs clear, normal breath sounds Breasts: no masses Cardiovascular/Chest: normal peripheral pulses, normal rate, no JVD Abdomen: normal bowel sounds, non tender Genitourinary/Rectal: normal genital exam Extremities: normal range of motion, non-tender Skin Exam: normal pigmentation, warm/dry Laboratory Tests 01/10/18 07:40: White Blood Count 4.8, Red Blood Count 4.01L, Hemoglobin 12.9L, Hematocrit 38.2L , Mean Corpuscular Volume 95, Mean Corpuscular Hemoglobin 32.2H, Mean Corpuscular Hemoglobin Concent 33.8, Red Cell Distribution Width 11.9, Platelet Count 169, Mean Platelet Volume 7.2, Neutrophils (%) (Auto) 50.3, Lymphocytes (% ) (Auto) 36.4, Monocytes (%) (Auto) 11.8H, Eosinophils (%) (Auto) 0.8, Basophils (%) (Auto) 0.7, Sodium Level 144, Potassium Level 3.2L, Chloride Level 105, Carbon Dioxide Level 31, Anion Gap 8, Blood Urea Nitrogen 7, Creatinine 0.7, Estimat Glomerular Filtration Rate , Glucose Level 87, Calcium Level 8.7, Total Bilirubin 0.6, Aspartate Amino Transf (AST/SGOT) 59H, Alanine Aminotransferase (ALT/SGPT) 52, Alkaline Phosphatase 62, Pro-B-Type Natriuretic Peptide 152H, Total Protein 7.8, Albumin 3.3L, Globulin 4.5, Albumin/Globulin Ratio 0.7L Current Medications Medications (Trade) Dose Ordered Sig/Dilia Route PRN Reason Start Time Stop Time Status Last Admin Dose Admin Acetaminophen (Tylenol) 650 mg Q4H PRN ORAL fever 01/08/18 21:15 02/07/18 21:14 Al Hydroxide/Mg Hydroxide (Mylanta II) 30 ml Q6H PRN ORAL dyspepsia 01/08/18 21:15 02/07/18 21:14 Amlodipine Besylate (Norvasc) 2.5 mg DAILY ORAL 01/10/18 09:00 02/09/18 08:59 01/10/18 08:53 Dextrose (Dextrose 50%) STAT PRN IV Hypoglycemia 01/08/18 21:15 02/07/18 21:14 Dextrose (Dextrose 50%) STAT PRN IV Hypoglycemia 01/08/18 21:15 02/07/18 21:14 Divalproex Sodium (Depakote) 250 mg EVERY 12 HOURS ORAL 01/09/18 12:00 02/08/18 11:59 01/10/18 08:53 Heparin Sodium (Porcine) (Heparin 5000 units/ml) 5,000 units EVERY 12 HOURS SUBQ 01/09/18 09:00 02/08/18 08:59 01/09/18 09:00 Insulin Aspart (NovoLOG) BEFORE MEALS AND HS SUBQ 01/09/18 06:30 02/08/18 06:29 01/09/18 17:45 Lorazepam (Ativan 2mg/ml 1ml) 0.5 mg Q4H PRN IV For Anxiety 01/08/18 21:15 01/15/18 21:14 Ondansetron HCl (Zofran) 4 mg Q6H PRN IVP Nausea & Vomiting 01/08/18 21:15 02/07/18 21:14 Polyethylene Glycol (Miralax) 17 gm HSPRN PRN ORAL Constipation 01/08/18 21:15 02/07/18 21:14 Potassium Chloride 40 meq/ Sodium Chloride 570 ml @ 142.5 mls/ hr ONCE ONCE IVPB 01/10/18 10:30 01/10/18 14:29 01/10/18 11:11 Risperidone (RisperDAL) 3 mg BID ORAL 01/09/18 09:00 02/08/18 08:59 01/10/18 08:53 Zolpidem Tartrate (Ambien) 5 mg HSPRN PRN ORAL Insomnia 01/08/18 21:15 01/15/18 21:14 Rosalinda Edouard MD Jan 10, 2018 13:40
--- NOTE | 2018-01-10 14:35 | General Progress Note ---
Assessment/Plan Problem List: (1) UTI (urinary tract infection) ICD Codes: N39.0 - Urinary tract infection, site not specified SNOMED: 62562246 (2) Anemia ICD Codes: D64.9 - Anemia, unspecified SNOMED: 052825123 (3) Altered level of consciousness ICD Codes: R40.4 - Transient alteration of awareness SNOMED: 8429246 (4) Hypotension ICD Codes: I95.9 - Hypotension, unspecified SNOMED: 53049963, 783489730 Qualifiers: Qualified Codes: I95.89 - Other hypotension (5) Renal insufficiency ICD Codes: N28.9 - Disorder of kidney and ureter, unspecified SNOMED: 997984365, 992656301 (6) Pleural effusion, left ICD Codes: J90 - Pleural effusion, not elsewhere classified SNOMED: 36695042 (7) Diabetes mellitus ICD Codes: E11.9 - Type 2 diabetes mellitus without complications SNOMED: 65698278 (8) Hypokalemia ICD Codes: E87.6 - Hypokalemia SNOMED: 16565898, 551024208 Status: unchanged Assessment/Plan o2 pulm tx abx ot pt diet cbc bmp am Subjective Constitutional: Reports: weakness Allergies: Coded Allergies: PENICILLINS (Verified Allergy, Unknown, 01/08/18) All Systems: reviewed and negative except above Subjective sleepy calm in bed Objective Last 24 Hour Vital Signs Date Time Temp Pulse Resp B/P (MAP) Pulse Ox O2 Delivery O2 Flow Rate FiO2 01/10/18 12:00 98.8 70 18 147/71 94 Room Air 98.8 01/10/18 12:00 94 01/10/18 08:53 79 146/92 01/10/18 08:00 96 01/10/18 08:00 98.3 79 18 146/92 95 Room Air 98.3 01/10/18 04:00 73 01/10/18 04:00 97.9 75 20 134/83 93 Room Air 97.9 01/10/18 00:00 73 01/10/18 00:00 98.1 77 20 140/92 95 Room Air 98.1 01/09/18 20:00 91 01/09/18 20:00 99.9 85 21 138/78 94 Room Air 99.9 01/09/18 16:00 108 01/09/18 16:00 98.2 108 20 149/90 98 Room Air 98.2 Intake and Output 01/09/18 01/10/18 19:00 07:00 Intake Total 600 ml Balance 600 ml Intake Oral 600 ml # Voids 3 3 Laboratory Tests 01/10/18 07:40: White Blood Count 4.8, Red Blood Count 4.01L, Hemoglobin 12.9L, Hematocrit 38.2L , Mean Corpuscular Volume 95, Mean Corpuscular Hemoglobin 32.2H, Mean Corpuscular Hemoglobin Concent 33.8, Red Cell Distribution Width 11.9, Platelet Count 169, Mean Platelet Volume 7.2, Neutrophils (%) (Auto) 50.3, Lymphocytes (% ) (Auto) 36.4, Monocytes (%) (Auto) 11.8H, Eosinophils (%) (Auto) 0.8, Basophils (%) (Auto) 0.7, Sodium Level 144, Potassium Level 3.2L, Chloride Level 105, Carbon Dioxide Level 31, Anion Gap 8, Blood Urea Nitrogen 7, Creatinine 0.7, Estimat Glomerular Filtration Rate , Glucose Level 87, Calcium Level 8.7, Total Bilirubin 0.6, Aspartate Amino Transf (AST/SGOT) 59H, Alanine Aminotransferase (ALT/SGPT) 52, Alkaline Phosphatase 62, Pro-B-Type Natriuretic Peptide 152H, Total Protein 7.8, Albumin 3.3L, Globulin 4.5, Albumin/Globulin Ratio 0.7L Height (Feet): 6 Height (Inches): 0.00 Weight (Pounds): 200 General Appearance: lethargic EENT: normal ENT inspection Neck: normal alignment Cardiovascular: normal peripheral pulses, normal rate, regular rhythm Respiratory/Chest: decreased breath sounds Abdomen: normal bowel sounds, non tender, soft Extremities: normal inspection Edema: no edema noted Arm (L), no edema noted Arm (R), no edema noted Leg (L), no edema noted Leg (R), no edema noted Pedal (L), no edema noted Pedal (R), no edema noted Generalized Neurologic: motor weakness Skin: normal pigmentation, warm/dry MYKE WHIPPLE Jan 10, 2018 14:35
[2018-01-10 16:00] VITALS: BP 141/73
--- NOTE | 2018-01-10 17:17 | Cardiology Progress Note ---
Assessment/Plan Assessment/Plan The patient is seen and examined, full consult note is dictated. Objective Last 24 Hour Vital Signs Date Time Temp Pulse Resp B/P (MAP) Pulse Ox O2 Delivery O2 Flow Rate FiO2 01/10/18 12:00 98.8 70 18 147/71 94 Room Air 98.8 01/10/18 12:00 94 01/10/18 08:53 79 146/92 01/10/18 08:00 96 01/10/18 08:00 98.3 79 18 146/92 95 Room Air 98.3 01/10/18 04:00 73 01/10/18 04:00 97.9 75 20 134/83 93 Room Air 97.9 01/10/18 00:00 73 01/10/18 00:00 98.1 77 20 140/92 95 Room Air 98.1 01/09/18 20:00 91 01/09/18 20:00 99.9 85 21 138/78 94 Room Air 99.9 Intake and Output 01/09/18 01/10/18 18:59 06:59 Intake Total 600 ml Balance 600 ml Intake Oral 600 ml # Voids 3 3 Laboratory Tests Test 01/10/18 07:40 White Blood Count 4.8 K/UL (4.8-10.8) Red Blood Count 4.01 M/UL (4.70-6.10) L Hemoglobin 12.9 G/DL (14.2-18.0) L Hematocrit 38.2 % (42.0-52.0) L Mean Corpuscular Volume 95 FL (80-99) Mean Corpuscular Hemoglobin 32.2 PG (27.0-31.0) H Mean Corpuscular Hemoglobin Concent 33.8 G/DL (32.0-36.0) Red Cell Distribution Width 11.9 % (11.6-14.8) Platelet Count 169 K/UL (150-450) Mean Platelet Volume 7.2 FL (6.5-10.1) Neutrophils (%) (Auto) 50.3 % (45.0-75.0) Lymphocytes (%) (Auto) 36.4 % (20.0-45.0) Monocytes (%) (Auto) 11.8 % (1.0-10.0) H Eosinophils (%) (Auto) 0.8 % (0.0-3.0) Basophils (%) (Auto) 0.7 % (0.0-2.0) Sodium Level 144 MMOL/L (136-145) Potassium Level 3.2 MMOL/L (3.5-5.1) L Chloride Level 105 MMOL/L (98-107) Carbon Dioxide Level 31 MMOL/L (21-32) Anion Gap 8 mmol/L (5-15) Blood Urea Nitrogen 7 mg/dL (7-18) Creatinine 0.7 MG/DL (0.55-1.30) Estimat Glomerular Filtration Rate mL/min (>60) Glucose Level 87 MG/DL (74-106) Calcium Level 8.7 MG/DL (8.5-10.1) Total Bilirubin 0.6 MG/DL (0.2-1.0) Aspartate Amino Transf (AST/SGOT) 59 U/L (15-37) H Alanine Aminotransferase (ALT/SGPT) 52 U/L (12-78) Alkaline Phosphatase 62 U/L (46-116) Pro-B-Type Natriuretic Peptide 152 pg/mL (0-125) H Total Protein 7.8 G/DL (6.4-8.2) Albumin 3.3 G/DL (3.4-5.0) L Globulin 4.5 g/dL Albumin/Globulin Ratio 0.7 (1.0-2.7) L IAN GIRON Jan 10, 2018 17:16
[2018-01-10 20:00] VITALS: BP 149/88
--- NOTE | 2018-01-10 22:01 | Consultation ---
DATE OF CONSULTATION: 01/10/2018 NEPHROLOGY CONSULTATION CONSULTING PHYSICIAN: Candace Hogan M.D. REFERRING PHYSICIAN: Kalpesh Howard D.O. REASON FOR CONSULTATION: Acute renal failure and severe hypokalemia. HISTORY OF PRESENT ILLNESS: The patient is an 77-year-old male with past medical history significant for history of dementia, psychosis, diabetes, and hypertension presented to nursing facility by paramedics. Apparently the patient had altered level of consciousness. He was found snoring and decreasing responsiveness. The patient was found to have pinpoint pupil. The patient was given Narcan. The patient was found to be hypotensive and was given a bolus was brought into the emergency room at [facility]. Accu-Chek was 11. The patient also responded to treatment. The patient had an CT of the head, which was negative and was found to have an hypokalemia and acute renal failure, consequently admitted in the hospital. At this point he is alert and aware. Denies having any shortness of breath or chest pain. ALLERGIES: The patient is allergic to penicillin. HOME MEDICATIONS: Includin. Amlodipine 2.5 mg p.o. daily. 2. Aspirin 81 mg p.o. daily. 3. Vitamin D3 1000 daily. 4. Colace 100 mg p.o. daily. 5. Metformin 500 mg p.o. daily. 6. Risperdal 3 mg p.o. daily. FAMILY HISTORY: Negative for any history of premature heart disease. PAST MEDICAL HISTORY: 1. Hypertension. 2. Diabetes. 3. Dementia. 4. History of pancreatic disease. REVIEW OF SYSTEMS: GENERAL: He denies any weight loss, weight gain, fever, chills, night sweats. HEAD AND NECK: Denies any dysphagia, odynophagia, blurry vision, headache, or neck stiffness. PULMONARY: No shortness of breath. No cough or sputum. CARDIOVASCULAR: Denies any chest pain or palpitations. GASTROINTESTINAL: Denies any nausea, vomiting, diarrhea, hematemesis, or hematochezia. GENITOURINARY: Denies any dysuria, frequency, or hematuria. MUSCULOSKELETAL: Denies any weakness or numbness. PHYSICAL EXAMINATION: VITAL SIGNS: Temperature of 98 degrees, pulse of 98, respiratory rate of 18, and blood pressure of 117/74. HEAD AND NECK: No JVP. No LAD. No thyromegaly. Extraocular movement intact. Pupils are reactive to light and accommodation. LUNGS: Clear to auscultation. CARDIAC: Regular rate and rhythm. S1 and S2. No murmur. No gallop. ABDOMEN: soft, nontender, nondistended. EXTREMITIES: No edema. No clubbing. No cyanosis. NEUROLOGIC: Cranial nerves II to XII within normal limits. Upper and lower extremities are grossly intact. LABORATORY STUDIES: Sodium 140, potassium 3.1, chloride 104, bicarb 28, BUN 16, creatinine down to 0.8, and glucose of 78. Lactic acid on admission 4.3. Calcium of 8.7. AST 49, ALT 43, alkaline phosphatase 55. BNP 152. Albumin of 2.7, total protein of 6.5. UA revealed specific gravity of 1.020, proteins 1+, glucose 1+, ketones 2 +, wbc's 5 to 10, rbc's 0-2. Urine toxicology was positive for salicylates, opiates was negative, alcohol was negative, . ASSESSMENT: 1. Hypokalemia. 2. Hypotension. 3. Prerenal azotemia. 4. Urinary tract infection. 5. Altered level of consciousness. PLAN: 1. Continue IV fluids. 2. Replace the potassium. 3. Check the magnesium level. 4. Check random urine protein and creatinine ratio to calculate proteinuria. 5. Check microalbumin level for diabetic nephropathy. 6. Hold antihypertensive medications. 7. Continuation with hydration. Again, I would like to thank, Dr. Kalpesh Howard, for allowing me to participate in the care of this patient. Candace Hogan M.D. DR: Mariah JOB#: [id number] CC:
--- NOTE | 2018-01-10 22:45 | Consultation ---
DATE OF CONSULTATION: 01/10/2018 CARDIOLOGY CONSULTATION CONSULTING PHYSICIAN: Bryce Cabezas M.D. REFERRING PHYSICIAN: Kalpesh Howard D.O. REASON FOR CONSULTATION: Management of hypotension. HISTORY OF PRESENT ILLNESS: The patient is a very unfortunate 77-year-old gentleman who is a resident of correction facility, who was brought to emergency department of [facility] for decreased level of consciousness, associated fall, who responded to 2 mg of Narcan. His Accu-Chek was 111 at the time of arrival of paramedics. Apparently, his respirations as well as level of consciousness improved with Narcan. His blood pressure systolic was 80 in the field. He was given a liter of IV bolus. The patient was brought into emergency department. Denied any chest pain or shortness of breath. Initial 12-lead electrocardiogram was significant for sinus to rhythm at a rate of [address] and T-wave abnormalities. Blood pressure improved after IV bolus to 106/60 mmHg. His heart rate was 94. He was admitted to telemetry for further evaluation and management. Cardiology consultation was made at the request of Dr. Howard for management of hypotension. There is no history of coronary artery disease, congestive heart failure, or cardiac arrhythmias according to the records. PAST MEDICAL HISTORY: Schizophrenia, dementia, hyperlipidemia, hypertension, and history of seizure disorder. PAST SURGICAL HISTORY: History of craniotomy for unknown reasons. MEDICATIONS: List of medications in nursing facility include amlodipine 2.5 mg p.o. daily, aspirin 81 mg p.o. daily, vitamin D3 1000 units p.o. daily, Colace 100 mg p.o. twice daily, metformin 500 mg twice daily, and Risperdal 3 mg p.o. twice daily. ALLERGIES: To penicillin. SOCIAL HISTORY: Denies any history of alcohol or illicit drug use, but he reports smoking. He lives in assisted living facility. REVIEW OF SYSTEMS: HEENT: Denies any headache, diplopia, or blurred vision. CONSTITUTIONAL: Some generalized weakness, but no fever or chills. No night sweats. CARDIOVASCULAR: Denies any chest pain, shortness breath, PND, orthopnea, leg swelling, or palpitation. PULMONARY: Denies any cough, hemoptysis, or wheezing. GASTROINTESTINAL: Denies any nausea, vomiting, diarrhea, constipation, abdominal pain, or GI bleed. GENITOURINARY: Denies any hematuria, dysuria, or incontinence. NEUROLOGY: Denies any motor dysfunction, sensory deficit, or altered speech. PHYSICAL EXAMINATION: GENERAL: The patient is a very unfortunate 77-year-old gentleman, in no apparent respiratory distress. Answers to my questions appropriately. VITAL SIGNS: On arrival to the hospital, blood pressure was 106/60, respirations of 18, pulse of 94, O2 saturation 99% on room air, and temperature 96.1 degrees Fahrenheit. HEENT: Atraumatic and normocephalic. Anicteric. Pupils are equal, round, and reactive to light and accommodation. Extraocular muscles are intact. NECK: JVP less than 5 centimeter. No carotid bruit. Carotid upstrokes 2+ bilaterally. Poor dentition. Moist mucosal membrane. CARDIOVASCULAR: Normal S1 and S2. Regular rate and rhythm. No murmurs, gallops, or rubs. PMI is at fourth intercostal space at the midclavicular line. LUNGS: Clear to auscultation bilaterally. ABDOMEN: Soft, nontender, and nondistended. No hepatosplenomegaly. Positive bowel sounds. EXTREMITIES: No evidence of edema, clubbing, or cyanosis. LABORATORY AND DIAGNOSTIC DATA: At the time of arrival to the hospital, WBC was 8.6, hemoglobin of 12.9, hematocrit 38.5, and platelet count is 173. Sodium was 144, potassium is 2.9, chloride 106, bicarbonate 28, BUN of 15, creatinine 1.6, and glucose is 118. Calcium is 8.2. ProBNP was 286. TSH was 5.8. Troponin-I was 0.021 and total cholesterol is 109, LDL was 68, HDL of 43, and triglyceride was 25. INR was 1.1. Toxicology in the urine was within normal limits. A CT of head showed chronic and age-related changes, evidence of multiple prior medina holes, correlate with clinical history. Negative for intracranial bleed or mass effect. Chest x-ray showed left basilar pleural and parenchymal disease, infiltrate versus pleural fluid. A 12-lead electrocardiogram shows sinus rhythm at a rate of 73 with no evidence of ST and T-wave abnormalities, no LVH. A 2D echocardiography in this patient was done and showed normal LV systolic function with LVEF of about 60% to 65%, mild LVH, mild mitral regurgitation, and E to A-wave reversal consistent with LV relaxation, and right ventricular systolic pressure of 42 mmHg suggest mild pulmonary hypertension. ASSESSMENT AND PLAN: The patient is a very unfortunate 77-year-old gentleman, seen in Cardiology consultation for evaluation of hypotension as well as possible syncope. 1. Syncope, is unwitnessed. The patient clearly was hypokalemic as it reflects on the electrolytes as well as his renal function and the fact that he showed contraction alkalosis from the chemistry as well. The patient responded well to one liter of normal saline and filled with the religion of the blood pressure. Monitor hemodynamics. I would suggest to hold on amlodipine for now. 2. History of diabetes mellitus. Blood sugar in the field was within normal limits. Continue metformin. 3. Normal LV systolic function. 4. Mild pulmonary hypertension could be secondary to recurrent stenosis. I would like to thank, Dr. Howard, for allowing me to participate in the care of this patient. Bryce Cabezas M.D. DR: CRICKET JOB#: [id number] CC:
[2018-01-11] VITALS: BP 153/82
--- NOTE | 2018-01-11 00:30 | Consultation ---
DATE OF CONSULTATION: 01/10/2018 NEPHROLOGY CONSULTATION CONSULTING PHYSICIAN: Candace Hogan M.D. REFERRING PHYSICIAN: Kalpesh Howard D.O. REASON FOR CONSULTATION: Acute renal failure and severe hypokalemia. HISTORY OF PRESENT ILLNESS: The patient is an 77-year-old male with past medical history significant for history of dementia, psychosis, diabetes, and hypertension presented to nursing facility by paramedics. Apparently the patient had altered level of consciousness. He was found snoring and decreasing responsiveness. The patient was found to have pinpoint pupil. The patient was given Narcan. The patient was found to be hypotensive and was given a bolus was brought into the emergency room at [facility]. Accu-Chek was . The patient also responded to Narcan treatment. The patient had an CT of the head, which was negative and was found to have an hypokalemia and acute renal failure, consequently admitted in the hospital. At this point he is alert and aware. Denies having any shortness of breath or chest pain. ALLERGIES: The patient is allergic to penicillin. HOME MEDICATIONS: Includin. Amlodipine 2.5 mg p.o. daily. 2. Aspirin 81 mg p.o. daily. 3. Vitamin D3 1000 daily. 4. Colace 100 mg p.o. daily. 5. Metformin 500 mg p.o. daily. 6. Risperdal 3 mg p.o. daily. FAMILY HISTORY: Negative for any history of premature heart disease. PAST MEDICAL HISTORY: 1. Hypertension. 2. Diabetes. 3. Dementia. 4. History of pancreatic disease. REVIEW OF SYSTEMS: GENERAL: He denies any weight loss, weight gain, fever, chills, night sweats. HEAD AND NECK: Denies any dysphagia, odynophagia, blurry vision, headache, or neck stiffness. PULMONARY: No shortness of breath. No cough or sputum. CARDIOVASCULAR: Denies any chest pain or palpitations. GASTROINTESTINAL: Denies any nausea, vomiting, diarrhea, hematemesis, or hematochezia. GENITOURINARY: Denies any dysuria, frequency, or hematuria. MUSCULOSKELETAL: Denies any weakness or numbness. PHYSICAL EXAMINATION: VITAL SIGNS: Temperature of 98 degrees, pulse of 98, respiratory rate of 18, and blood pressure of 117/74. HEAD AND NECK: No JVP. No LAD. No thyromegaly. Extraocular movement intact. Pupils are reactive to light and accommodation. LUNGS: Clear to auscultation. CARDIAC: Regular rate and rhythm. S1 and S2. No murmur. No gallop. ABDOMEN: soft, nontender, nondistended. EXTREMITIES: No edema. No clubbing. No cyanosis. NEUROLOGIC: Cranial nerves II to XII within normal limits. Upper and lower extremities are grossly intact. LABORATORY STUDIES: Sodium 140, potassium 3.1, chloride 104, bicarb 28, BUN 16, creatinine down to 0.8, and glucose of 78. Lactic acid on admission 4.3. Calcium of 8.7. AST 49, ALT 43, alkaline phosphatase 55. BNP 152. Albumin of 2.7, total protein of 6.5. UA revealed specific gravity of 1.020, proteins 1+, glucose 1+, ketones 2 +, wbc's 5 to 10, rbc's 0-2. Urine toxicology was positive for salicylates, opiates was negative, alcohol was negative, . ASSESSMENT: 1. Hypokalemia. 2. Hypotension. 3. Prerenal azotemia. 4. Urinary tract infection. 5. Altered level of consciousness. PLAN: 1. Continue IV fluids. 2. Replace the potassium. 3. Check the magnesium level. 4. Check random urine protein and creatinine ratio to calculate proteinuria. 5. Check microalbumin level for diabetic nephropathy. 6. Hold antihypertensive medications. 7. Continuation with hydration. Again, I would like to thank, Dr. Kalpesh Howard, for allowing me to participate in the care of this patient. Candace Hogan M.D. DR: Mariah JOB#: [id number] CC:
[2018-01-11] MEDS: NovoLOG Insulin Flexpen SUBQ SCH ×3 (05:25→16:30)
[2018-01-11 07:59] VITALS: BP 128/72
[2018-01-11] MEDS: Heparin 5000 units/ml inj SUBQ SCH (08:10)
[2018-01-11 08:53] LABS: BASOPHILS % (AUTO) 0.6 % (0.0-2.0); EOSINOPHILS % (AUTO) 2.8 % (0.0-3.0); HEMATOCRIT 36.9 % (42.0-52.0); HEMOGLOBIN 12.7 G/DL (14.2-18.0); LYMPHOCYTES % (AUTO) 43.3 % (20.0-45.0); MEAN CORPUSCULAR VOLUME 95 FL (80-99); MONOCYTES % (AUTO) 12.2 % (1.0-10.0); NEUTROPHILS % (AUTO) 41.2 % (45.0-75.0); PLATELET COUNT 144 K/UL (150-450); RED CELL DISTRIBUTION WIDTH 11.8 % (11.6-14.8)
[2018-01-11 09:11] LABS: ALANINE AMINOTRANSFERASE 47 U/L (12-78); ALBUMIN/GLOBULIN RATIO 0.7 (1.0-2.7); ALKALINE PHOSPHATASE 62 U/L (46-116); ASPARTATE AMINO TRANSFERASE 56 U/L (15-37); BILIRUBIN,TOTAL 0.5 MG/DL (0.2-1.0); BLOOD UREA NITROGEN 9 mg/dL (7-18); CALCIUM 8.7 MG/DL (8.5-10.1); CHLORIDE 105 MMOL/L (98-107); CREATININE 0.6 MG/DL (0.55-1.30); PHOSPHORUS 2.8 MG/DL (2.5-4.9); POTASSIUM 3.6 MMOL/L (3.5-5.1); SODIUM 142 MMOL/L (136-145)
[2018-01-11 09:14] LABS: CARBON DIOXIDE 29 MMOL/L (21-32)
[2018-01-11 12:31] VITALS: BP 134/80
--- NOTE | 2018-01-11 14:38 | Nephrology Progress Note ---
Assessment/Plan Assessment 1. Hypokalemia. 2. Hypotension. 3. Prerenal azotemia. 4. Urinary tract infection. 5. Altered level of consciousness. Plan replace mg mentoring electrolyte avoid NSAID Subjective Constitutional: Reports: no symptoms HEENT: Reports: no symptoms Genitourinary: Reports: no symptoms Neurologic/Psychiatric: Reports: no symptoms Objective Objective Last 24 Hour Vital Signs Date Time Temp Pulse Resp B/P (MAP) Pulse Ox O2 Delivery O2 Flow Rate FiO2 01/11/18 12:31 97.7 62 18 134/80 97 Room Air 97.7 01/11/18 08:09 65 128/72 01/11/18 07:59 97.8 65 20 128/72 92 Room Air 97.8 01/11/18 04:00 70 01/11/18 00:00 98.3 68 20 153/82 97 Room Air 98.3 01/11/18 00:00 64 01/10/18 20:00 82 01/10/18 20:00 98.9 73 21 149/88 98 Room Air 98.9 01/10/18 16:00 79 01/10/18 16:00 98.6 75 20 141/73 98 Room Air 98.6 Intake and Output 01/10/18 01/11/18 19:00 07:00 Intake Total 1320 ml 240 ml Balance 1320 ml 240 ml Intake Oral 1320 ml 240 ml # Voids 4 4 Laboratory Tests 01/10/18 19:00: Urine Eosinophils None seen, Urine Random Creatinine [Pending], Urine Random Microalbumin [Pending], Urine Random Total Protein 18H, Urine Random Sodium 108 , Urine Creatinine 114.4, Urine Microalbumin/Creatinine Ratio [Pending] 01/11/18 07:25: White Blood Count 4.0L, Red Blood Count 3.90L, Hemoglobin 12.7L, Hematocrit 36.9L, Mean Corpuscular Volume 95, Mean Corpuscular Hemoglobin 32.6H, Mean Corpuscular Hemoglobin Concent 34.4, Red Cell Distribution Width 11.8, Platelet Count 144L, Mean Platelet Volume 7.3, Neutrophils (%) (Auto) 41.2L, Lymphocytes (%) (Auto) 43.3, Monocytes (%) (Auto) 12.2H, Eosinophils (%) (Auto) 2.8, Basophils (%) (Auto) 0.6, Prothrombin Time 10.6, Prothromb Time International Ratio 1.0, Activated Partial Thromboplast Time 31, Sodium Level 142, Potassium Level 3.6, Chloride Level 105, Carbon Dioxide Level 29, Blood Urea Nitrogen 9, Creatinine 0.6, Estimat Glomerular Filtration Rate , Glucose Level 86, Calcium Level 8.7, Phosphorus Level 2.8, Magnesium Level 1.6L, Total Bilirubin 0.5, Aspartate Amino Transf (AST/SGOT) 56H, Alanine Aminotransferase (ALT/SGPT) 47, Alkaline Phosphatase 62, Total Protein 7.3, Albumin 3.0L, Globulin 4.3, Albumin/ Globulin Ratio 0.7L Height (Feet): 6 Height (Inches): 0.00 Weight (Pounds): 200 Objective HEAD AND NECK: No JVP. No LAD. No thyromegaly. Extraocular movement intact. Pupils are reactive to light and accommodation. LUNGS: Clear to auscultation. CARDIAC: Regular rate and rhythm. S1 and S2. No murmur. No gallop. ABDOMEN: soft, nontender, nondistended. EXTREMITIES: No edema. No clubbing. No cyanosis. NEUROLOGIC: Cranial nerves II to XII within normal limits. Upper and lower extremities are grossly intact. JESUS SHEPARD Jan 11, 2018 14:38
--- NOTE | 2018-01-11 15:08 | General Progress Note ---
Assessment/Plan Problem List: (1) UTI (urinary tract infection) ICD Codes: N39.0 - Urinary tract infection, site not specified SNOMED: 91368707 (2) Anemia ICD Codes: D64.9 - Anemia, unspecified SNOMED: 665907781 (3) Altered level of consciousness ICD Codes: R40.4 - Transient alteration of awareness SNOMED: 4786793 (4) Hypotension ICD Codes: I95.9 - Hypotension, unspecified SNOMED: 93029245, 848790511 Qualifiers: Qualified Codes: I95.89 - Other hypotension (5) Renal insufficiency ICD Codes: N28.9 - Disorder of kidney and ureter, unspecified SNOMED: 366852981, 162817508 (6) Pleural effusion, left ICD Codes: J90 - Pleural effusion, not elsewhere classified SNOMED: 08220821 (7) Diabetes mellitus ICD Codes: E11.9 - Type 2 diabetes mellitus without complications SNOMED: 90861517 (8) Hypokalemia ICD Codes: E87.6 - Hypokalemia SNOMED: 52541237, 744146211 Status: unchanged Assessment/Plan o2 pulm tx abx ot pt diet cbc bmp am psyc transfer Subjective Constitutional: Reports: weakness Allergies: Coded Allergies: PENICILLINS (Verified Allergy, Unknown, 01/08/18) All Systems: reviewed and negative except above Subjective sleepy calm in bed Objective Last 24 Hour Vital Signs Date Time Temp Pulse Resp B/P (MAP) Pulse Ox O2 Delivery O2 Flow Rate FiO2 01/11/18 12:31 97.7 62 18 134/80 97 Room Air 97.7 01/11/18 08:09 65 128/72 01/11/18 07:59 97.8 65 20 128/72 92 Room Air 97.8 01/11/18 04:00 70 01/11/18 00:00 98.3 68 20 153/82 97 Room Air 98.3 01/11/18 00:00 64 01/10/18 20:00 82 01/10/18 20:00 98.9 73 21 149/88 98 Room Air 98.9 01/10/18 16:00 79 01/10/18 16:00 98.6 75 20 141/73 98 Room Air 98.6 Intake and Output 01/10/18 01/11/18 19:00 07:00 Intake Total 1320 ml 240 ml Balance 1320 ml 240 ml Intake Oral 1320 ml 240 ml # Voids 4 4 Laboratory Tests 01/10/18 19:00: Urine Eosinophils None seen, Urine Random Creatinine [Pending], Urine Random Microalbumin [Pending], Urine Random Total Protein 18H, Urine Random Sodium 108 , Urine Creatinine 114.4, Urine Microalbumin/Creatinine Ratio [Pending] 01/11/18 07:25: White Blood Count 4.0L, Red Blood Count 3.90L, Hemoglobin 12.7L, Hematocrit 36.9L, Mean Corpuscular Volume 95, Mean Corpuscular Hemoglobin 32.6H, Mean Corpuscular Hemoglobin Concent 34.4, Red Cell Distribution Width 11.8, Platelet Count 144L, Mean Platelet Volume 7.3, Neutrophils (%) (Auto) 41.2L, Lymphocytes (%) (Auto) 43.3, Monocytes (%) (Auto) 12.2H, Eosinophils (%) (Auto) 2.8, Basophils (%) (Auto) 0.6, Prothrombin Time 10.6, Prothromb Time International Ratio 1.0, Activated Partial Thromboplast Time 31, Sodium Level 142, Potassium Level 3.6, Chloride Level 105, Carbon Dioxide Level 29, Blood Urea Nitrogen 9, Creatinine 0.6, Estimat Glomerular Filtration Rate , Glucose Level 86, Calcium Level 8.7, Phosphorus Level 2.8, Magnesium Level 1.6L, Total Bilirubin 0.5, Aspartate Amino Transf (AST/SGOT) 56H, Alanine Aminotransferase (ALT/SGPT) 47, Alkaline Phosphatase 62, Total Protein 7.3, Albumin 3.0L, Globulin 4.3, Albumin/ Globulin Ratio 0.7L Height (Feet): 6 Height (Inches): 0.00 Weight (Pounds): 200 General Appearance: lethargic, confused EENT: normal ENT inspection Neck: normal alignment Cardiovascular: normal peripheral pulses, normal rate, regular rhythm Respiratory/Chest: chest wall non-tender, lungs clear, normal breath sounds Abdomen: normal bowel sounds, non tender, soft Extremities: normal inspection Edema: no edema noted Arm (L), no edema noted Arm (R), no edema noted Leg (L), no edema noted Leg (R), no edema noted Pedal (L), no edema noted Pedal (R), no edema noted Generalized Neurologic: motor weakness Skin: normal pigmentation, warm/dry MYKE WHIPPLE Jan 11, 2018 15:08
--- NOTE | 2018-01-11 15:47 | Pulmonology Progress Note ---
Assessment/Plan Problems: (1) Pleural effusion, left (2) Altered level of consciousness (3) Renal insufficiency (4) Hypotension (5) Diabetes mellitus Assessment/Plan improving f/u clinically symptomatic treatment sliding scale all meds and notes reviewed f/u renal numbers and US dvt prophylaxis. dc plan in progress Subjective Constitutional: Reports: no symptoms HEENT: Repors: no symptoms Respiratory: Reports: no symptoms Allergies: Coded Allergies: PENICILLINS (Verified Allergy, Unknown, 01/08/18) Objective Last 24 Hour Vital Signs Date Time Temp Pulse Resp B/P (MAP) Pulse Ox O2 Delivery O2 Flow Rate FiO2 01/11/18 12:31 97.7 62 18 134/80 97 Room Air 97.7 01/11/18 08:09 65 128/72 01/11/18 07:59 97.8 65 20 128/72 92 Room Air 97.8 01/11/18 04:00 70 01/11/18 00:00 98.3 68 20 153/82 97 Room Air 98.3 01/11/18 00:00 64 01/10/18 20:00 82 01/10/18 20:00 98.9 73 21 149/88 98 Room Air 98.9 01/10/18 16:00 79 01/10/18 16:00 98.6 75 20 141/73 98 Room Air 98.6 Intake and Output 01/10/18 01/11/18 19:00 07:00 Intake Total 1320 ml 240 ml Balance 1320 ml 240 ml Intake Oral 1320 ml 240 ml # Voids 4 4 Objective General Appearance: WD/WN Lines, tubes and drains: peripheral HEENT: normocephalic, atraumatic Neck: non-tender, normal alignment Respiratory/Chest: chest wall non-tender, lungs clear, normal breath sounds Breasts: no masses Cardiovascular/Chest: normal peripheral pulses, normal rate, no JVD Abdomen: normal bowel sounds, non tender Genitourinary/Rectal: normal genital exam Extremities: normal range of motion, non-tender Skin Exam: normal pigmentation, warm/dry Microbiology Date/Time Source Procedure Growth Status 01/08/18 20:12 Nasal Nares MRSA Culture - Final NO METHICILLIN RESISTANT STAPH AUREUS... Complete Laboratory Tests 01/10/18 19:00: Urine Eosinophils None seen, Urine Random Creatinine [Pending], Urine Random Microalbumin [Pending], Urine Random Total Protein 18H, Urine Random Sodium 108 , Urine Creatinine 114.4, Urine Microalbumin/Creatinine Ratio [Pending] 01/11/18 07:25: White Blood Count 4.0L, Red Blood Count 3.90L, Hemoglobin 12.7L, Hematocrit 36.9L, Mean Corpuscular Volume 95, Mean Corpuscular Hemoglobin 32.6H, Mean Corpuscular Hemoglobin Concent 34.4, Red Cell Distribution Width 11.8, Platelet Count 144L, Mean Platelet Volume 7.3, Neutrophils (%) (Auto) 41.2L, Lymphocytes (%) (Auto) 43.3, Monocytes (%) (Auto) 12.2H, Eosinophils (%) (Auto) 2.8, Basophils (%) (Auto) 0.6, Prothrombin Time 10.6, Prothromb Time International Ratio 1.0, Activated Partial Thromboplast Time 31, Sodium Level 142, Potassium Level 3.6, Chloride Level 105, Carbon Dioxide Level 29, Blood Urea Nitrogen 9, Creatinine 0.6, Estimat Glomerular Filtration Rate , Glucose Level 86, Calcium Level 8.7, Phosphorus Level 2.8, Magnesium Level 1.6L, Total Bilirubin 0.5, Aspartate Amino Transf (AST/SGOT) 56H, Alanine Aminotransferase (ALT/SGPT) 47, Alkaline Phosphatase 62, Total Protein 7.3, Albumin 3.0L, Globulin 4.3, Albumin/ Globulin Ratio 0.7L Current Medications Medications (Trade) Dose Ordered Sig/Dilia Route PRN Reason Start Time Stop Time Status Last Admin Dose Admin Acetaminophen (Tylenol) 650 mg Q4H PRN ORAL fever 01/08/18 21:15 02/07/18 21:14 Al Hydroxide/Mg Hydroxide (Mylanta II) 30 ml Q6H PRN ORAL dyspepsia 01/08/18 21:15 02/07/18 21:14 Amlodipine Besylate (Norvasc) 2.5 mg DAILY ORAL 01/10/18 09:00 02/09/18 08:59 01/11/18 08:09 Dextrose (Dextrose 50%) STAT PRN IV Hypoglycemia 01/08/18 21:15 02/07/18 21:14 Dextrose (Dextrose 50%) STAT PRN IV Hypoglycemia 01/08/18 21:15 02/07/18 21:14 Divalproex Sodium (Depakote) 250 mg EVERY 12 HOURS ORAL 01/09/18 12:00 02/08/18 11:59 01/11/18 08:09 Heparin Sodium (Porcine) (Heparin 5000 units/ml) 5,000 units EVERY 12 HOURS SUBQ 01/09/18 09:00 02/08/18 08:59 01/09/18 09:00 Insulin Aspart (NovoLOG) BEFORE MEALS AND HS SUBQ 01/09/18 06:30 02/08/18 06:29 01/09/18 17:45 Lorazepam (Ativan 2mg/ml 1ml) 0.5 mg Q4H PRN IV For Anxiety 01/08/18 21:15 01/15/18 21:14 Magnesium Sulfate 100 ml @ 100 mls/hr ONCE ONCE IVPB 01/11/18 15:15 01/11/18 16:14 Ondansetron HCl (Zofran) 4 mg Q6H PRN IVP Nausea & Vomiting 01/08/18 21:15 02/07/18 21:14 Polyethylene Glycol (Miralax) 17 gm HSPRN PRN ORAL Constipation 01/08/18 21:15 02/07/18 21:14 Risperidone (RisperDAL) 3 mg BID ORAL 01/09/18 09:00 02/08/18 08:59 01/11/18 08:09 Zolpidem Tartrate (Ambien) 5 mg HSPRN PRN ORAL Insomnia 01/08/18 21:15 01/15/18 21:14 Rosalinda Edouard MD Jan 11, 2018 15:47
--- NOTE | 2018-01-11 18:46 | Progress Note ---
HISTORY: The patient is a male patient, who has altered mental status, confusion, cognition has declined below baseline. So, his attending physician has requested daily psychiatric consultation. MENTAL STATUS EXAMINATION: This is a 77-year-old male with psychomotor retardation. Mood is depressed. Affect guarded and restricted. Thought process disorganized and illogical. Denies any current suicidal or homicidal thoughts. Insight and judgment is poor. DIAGNOSIS: Schizoaffective, bipolar type. PLAN: Treat this patient with psychotropic medication regimen of Risperdal 2 mg twice a day, Depakote 250 mg p.o. q.12 h. Provide 18-20 minutes of supportive therapy and encourage the patient to interact appropriately with staff and other patients. Chart reviewed. Discussed with staff. Seen and assessed at bedside. Alexandra Santizo M.D. DR: NANCY JOB#: [id number] CC:
[2018-01-11 20:01] VITALS: BP 137/79
--- NOTE | 2018-01-11 20:11 | Cardiology Report ---
APPROVED REPORT EXAM: Two-dimensional and M-mode echocardiogram with Doppler and color Doppler. INDICATION Left Ventricular Function M-Mode DIMENSIONS IVSd1.5 (0.7-1.1cm)Left Atrium (MM)3.9 (1.6-4.0cm) LVDd4.6 (3.5-5.6cm)Aortic Root3.2 (2.0-3.7cm) PWd1.8 (0.7-1.1cm)Aortic Cusp Exc.2.0 (1.5-2.0cm) LVDs1.8 (2.5-4.0cm) PWs2.2 cm Normal left ventricular chamber size, systolic function and wall motion. Left ventricular ejection fraction estimated to be 60-65 %. Mild left ventricular hypertrophy. Anterior Echo-free space, may be due to pericardial fat or effusion. Left atrial size at upper limits of normal. Right cardiac chamber sizes are within normal limits. Focal aortic valve sclerosis with adequate cusp excursion. Thickened mitral valve leaflets with normal excursion. Mitral annulus and aortic root calcification. Normal pulmonic valve structure. Normal tricuspid valve structure. IVC is normal in size with physiological collapse. A color flow and spectral Doppler study was performed and revealed: Trace aortic insufficiency. Mild mitral regurgitation. reduced left ventricular relaxation c/w impaired relaxation diastolic dysfunction. Trace tricuspid regurgitation. Tricuspid systolic velocities suggests peak right ventricular systolic pressure of 42 mmHg, consistent with mild pulmonary hypertension. No pulmonic regurgitation present.
--- NOTE | 2018-01-11 20:17 | Cardiology Report ---
APPROVED REPORT EKG Measurement Heart [id number] Normal sinus rhythm Normal ECG
[2018-01-12 00:05] VITALS: BP 144/63
[2018-01-12] MEDS ORDERED: LORazepam Inj 2mg/ml 1ml IV PRN (01:15)
--- NOTE | 2018-01-12 02:15 | Consultation ---
DATE OF CONSULTATION: 01/10/2018 PSYCHOTHERAPY CONSULTATION PROGRESS NOTE CONSULTING PHYSICIAN: Bibi Judge PsyD. TREATING ATTENDING PHYSICIAN: Kalpesh Howard D.O. HISTORY OF PRESENT ILLNESS: The patient is a 77-year-old male patient from [facility], brought into the hospital for altered mental status and hypotension. The patient has been confused and disorganized, altered in his mental status, very helpless, and for these reasons was referred for psychotherapeutic services. This clinician assessed this patient. The patient remains confused. The patient states that he remembers taking medications, but does not recall, which medications he was taking. He has been feeling slightly depressed and hopeless. However, he has no particular triggers. Denies suicidal or homicidal thoughts of ideation. Denies auditory or visual hallucinations. At this time, the patient is also complaining of some irritability. PAST MEDICAL HISTORY: Includes a history of diabetes. ALLERGIES: The patient is allergic to penicillin. SUBSTANCE ABUSE HISTORY: There is no indication of alcohol use or illicit substance use. PSYCHIATRIC HISTORY: The patient has a history of schizoaffective disorder. The patient has been treated with psychotropic medications in the past. SOCIAL HISTORY: The patient is a 77-year-old male patient from . The patient is financially sustained through [employer]. MENTAL STATUS EXAM: The patient is alert and oriented to person and place. His mood is depressed. Affect is blunted. Thought process is disorganized. Thought content, confused. The patient has poor attention and concentration. DIAGNOSIS: Schizoaffective disorder, depressed type. PLAN: This clinician assessed this patient. Provided the patient with reality orientation. The patient is provided with supportive psychotherapy. Encouraging the patient to participate in treatment milieu. Continue with behavioral management. This clinician has reviewed the patient's chart and discussed the treatment with treatment team. Bibi Judge PsyD. DR: NIDHI JOB#: [id number] CC:
[2018-01-12] MEDS ORDERED: Mylanta II UD 30ml ORAL PRN (03:15)
[2018-01-12 04:00] VITALS: BP 146/80
[2018-01-12] MEDS: NovoLOG Insulin Flexpen SUBQ SCH ×4 (06:11→21:00)
[2018-01-12 08:00] VITALS: BP 153/81
[2018-01-12 08:08] LABS: BASOPHILS % (AUTO) 0.4 % (0.0-2.0); EOSINOPHILS % (AUTO) 3.4 % (0.0-3.0); HEMATOCRIT 34.9 % (42.0-52.0); HEMOGLOBIN 11.8 G/DL (14.2-18.0); LYMPHOCYTES % (AUTO) 35.9 % (20.0-45.0); MEAN CORPUSCULAR VOLUME 95 FL (80-99); NEUTROPHILS % (AUTO) 48.3 % (45.0-75.0); PLATELET COUNT 146 K/UL (150-450); RED BLOOD COUNT 3.68 M/UL (4.70-6.10); WHITE BLOOD COUNT 3.9 K/UL (4.8-10.8)
[2018-01-12] MEDS: Heparin 5000 units/ml inj SUBQ SCH ×2 (08:22→20:49)
[2018-01-12 08:41] LABS: ANION GAP 6 mmol/L (5-15); BLOOD UREA NITROGEN 13 mg/dL (7-18); CALCIUM 8.8 MG/DL (8.5-10.1); CARBON DIOXIDE 31 MMOL/L (21-32); CHLORIDE 103 MMOL/L (98-107); CREATININE 0.7 MG/DL (0.55-1.30); POTASSIUM 3.5 MMOL/L (3.5-5.1); SODIUM 140 MMOL/L (136-145)
[2018-01-12 12:00] VITALS: BP 144/89
--- NOTE | 2018-01-12 14:14 | Nephrology Progress Note ---
Assessment/Plan Assessment 1. Hypokalemia. 2. Hypotension. 3. Prerenal azotemia. 4. Urinary tract infection. 5. Altered level of consciousness. Plan replace electrolyte as need it mentoring electrolyte avoid NSAID monitoring renal function closely Subjective Constitutional: Reports: no symptoms HEENT: Reports: no symptoms Genitourinary: Reports: no symptoms Neurologic/Psychiatric: Reports: no symptoms Subjective alert and awake no complaints Objective Objective Last 24 Hour Vital Signs Date Time Temp Pulse Resp B/P (MAP) Pulse Ox O2 Delivery O2 Flow Rate FiO2 01/12/18 12:00 98.7 79 21 144/89 99 Room Air 98.7 01/12/18 08:00 97.9 88 22 153/81 100 Room Air 97.9 01/12/18 04:00 98.0 69 20 146/80 95 Room Air 98.0 01/12/18 00:05 98.2 70 20 144/63 94 Room Air 98.2 01/11/18 20:01 93 Room Air 01/11/18 20:01 98.4 89 20 137/79 93 Room Air 98.4 Intake and Output 01/11/18 01/12/18 19:00 07:00 Intake Total 650 ml 500 ml Balance 650 ml 500 ml Intake Oral 650 ml 500 ml # Voids 4 2 Laboratory Tests 01/12/18 06:15: White Blood Count 3.9L, Red Blood Count 3.68L, Hemoglobin 11.8L, Hematocrit 34.9L, Mean Corpuscular Volume 95, Mean Corpuscular Hemoglobin 32.2H, Mean Corpuscular Hemoglobin Concent 33.9, Red Cell Distribution Width 12.0, Platelet Count 146L, Mean Platelet Volume 7.9, Neutrophils (%) (Auto) 48.3, Lymphocytes ( %) (Auto) 35.9, Monocytes (%) (Auto) 12.0H, Eosinophils (%) (Auto) 3.4H, Basophils (%) (Auto) 0.4, Sodium Level 140, Potassium Level 3.5, Chloride Level 103, Carbon Dioxide Level 31, Anion Gap 6, Blood Urea Nitrogen 13, Creatinine 0.7, Estimat Glomerular Filtration Rate , Glucose Level 85, Calcium Level 8.8 Height (Feet): 6 Height (Inches): 0.00 Weight (Pounds): 200 Objective HEAD AND NECK: No JVP. No LAD. No thyromegaly. Extraocular movement intact. Pupils are reactive to light and accommodation. LUNGS: Clear to auscultation. CARDIAC: Regular rate and rhythm. S1 and S2. No murmur. No gallop. ABDOMEN: soft, nontender, nondistended. EXTREMITIES: No edema. No clubbing. No cyanosis. NEUROLOGIC: Cranial nerves II to XII within normal limits. Upper and lower extremities are grossly intact. JESUS SHEPARD Jan 12, 2018 14:14
--- NOTE | 2018-01-12 14:36 | General Progress Note ---
Assessment/Plan Problem List: (1) UTI (urinary tract infection) ICD Codes: N39.0 - Urinary tract infection, site not specified SNOMED: 93984469 (2) Anemia ICD Codes: D64.9 - Anemia, unspecified SNOMED: 481797914 (3) Altered level of consciousness ICD Codes: R40.4 - Transient alteration of awareness SNOMED: 4257122 (4) Hypotension ICD Codes: I95.9 - Hypotension, unspecified SNOMED: 96811771, 386849117 Qualifiers: Qualified Codes: I95.89 - Other hypotension (5) Renal insufficiency ICD Codes: N28.9 - Disorder of kidney and ureter, unspecified SNOMED: 307811808, 785449816 (6) Pleural effusion, left ICD Codes: J90 - Pleural effusion, not elsewhere classified SNOMED: 42571238 (7) Diabetes mellitus ICD Codes: E11.9 - Type 2 diabetes mellitus without complications SNOMED: 26215523 (8) Hypokalemia ICD Codes: E87.6 - Hypokalemia SNOMED: 37122319, 429756143 Status: stable, progressing, tolerating diet Assessment/Plan o2 pulm tx abx ot pt diet dc if clear Subjective Constitutional: Reports: weakness Allergies: Coded Allergies: PENICILLINS (Verified Allergy, Unknown, 01/08/18) All Systems: reviewed and negative except above Subjective sleepy calm in bed Objective Last 24 Hour Vital Signs Date Time Temp Pulse Resp B/P (MAP) Pulse Ox O2 Delivery O2 Flow Rate FiO2 01/12/18 12:00 98.7 79 21 144/89 99 Room Air 98.7 01/12/18 08:00 97.9 88 22 153/81 100 Room Air 97.9 01/12/18 04:00 98.0 69 20 146/80 95 Room Air 98.0 01/12/18 00:05 98.2 70 20 144/63 94 Room Air 98.2 01/11/18 20:01 93 Room Air 01/11/18 20:01 98.4 89 20 137/79 93 Room Air 98.4 Intake and Output 01/11/18 01/12/18 19:00 07:00 Intake Total 650 ml 500 ml Balance 650 ml 500 ml Intake Oral 650 ml 500 ml # Voids 4 2 Laboratory Tests 01/12/18 06:15: White Blood Count 3.9L, Red Blood Count 3.68L, Hemoglobin 11.8L, Hematocrit 34.9L, Mean Corpuscular Volume 95, Mean Corpuscular Hemoglobin 32.2H, Mean Corpuscular Hemoglobin Concent 33.9, Red Cell Distribution Width 12.0, Platelet Count 146L, Mean Platelet Volume 7.9, Neutrophils (%) (Auto) 48.3, Lymphocytes ( %) (Auto) 35.9, Monocytes (%) (Auto) 12.0H, Eosinophils (%) (Auto) 3.4H, Basophils (%) (Auto) 0.4, Sodium Level 140, Potassium Level 3.5, Chloride Level 103, Carbon Dioxide Level 31, Anion Gap 6, Blood Urea Nitrogen 13, Creatinine 0.7, Estimat Glomerular Filtration Rate , Glucose Level 85, Calcium Level 8.8 Height (Feet): 6 Height (Inches): 0.00 Weight (Pounds): 200 General Appearance: lethargic EENT: normal ENT inspection Neck: normal alignment Cardiovascular: normal peripheral pulses, normal rate, regular rhythm Respiratory/Chest: chest wall non-tender, lungs clear, normal breath sounds Abdomen: normal bowel sounds, non tender, soft Extremities: normal inspection Edema: no edema noted Arm (L), no edema noted Arm (R), no edema noted Leg (L), no edema noted Leg (R), no edema noted Pedal (L), no edema noted Pedal (R), no edema noted Generalized Neurologic: motor weakness Skin: normal pigmentation, warm/dry MYKE WHIPPLE Jan 12, 2018 14:36
--- NOTE | 2018-01-12 15:10 | Pulmonology Progress Note ---
Assessment/Plan Problems: (1) Encephalopathy acute (2) Pleural effusion, left (3) Renal insufficiency (4) Hypotension (5) Diabetes mellitus Assessment/Plan improving f/u clinically symptomatic treatment sliding scale all meds and notes reviewed f/u renal numbers and US dvt prophylaxis. dc plan in progress Subjective ROS Limited/Unobtainable: No Constitutional: Reports: no symptoms HEENT: Repors: no symptoms Respiratory: Reports: no symptoms Allergies: Coded Allergies: PENICILLINS (Verified Allergy, Unknown, 01/08/18) Objective Last 24 Hour Vital Signs Date Time Temp Pulse Resp B/P (MAP) Pulse Ox O2 Delivery O2 Flow Rate FiO2 01/12/18 12:00 98.7 79 21 144/89 99 Room Air 98.7 01/12/18 08:00 97.9 88 22 153/81 100 Room Air 97.9 01/12/18 04:00 98.0 69 20 146/80 95 Room Air 98.0 01/12/18 00:05 98.2 70 20 144/63 94 Room Air 98.2 01/11/18 20:01 93 Room Air 01/11/18 20:01 98.4 89 20 137/79 93 Room Air 98.4 Intake and Output 01/11/18 01/12/18 19:00 07:00 Intake Total 650 ml 500 ml Balance 650 ml 500 ml Intake Oral 650 ml 500 ml # Voids 4 2 Objective General Appearance: WD/WN Lines, tubes and drains: peripheral HEENT: normocephalic, atraumatic Neck: non-tender, normal alignment Respiratory/Chest: chest wall non-tender, lungs clear, normal breath sounds Breasts: no masses Cardiovascular/Chest: normal peripheral pulses, normal rate, no JVD Abdomen: normal bowel sounds, non tender Genitourinary/Rectal: normal genital exam Extremities: normal range of motion, non-tender Skin Exam: normal pigmentation, warm/dry Laboratory Tests 01/12/18 06:15: White Blood Count 3.9L, Red Blood Count 3.68L, Hemoglobin 11.8L, Hematocrit 34.9L, Mean Corpuscular Volume 95, Mean Corpuscular Hemoglobin 32.2H, Mean Corpuscular Hemoglobin Concent 33.9, Red Cell Distribution Width 12.0, Platelet Count 146L, Mean Platelet Volume 7.9, Neutrophils (%) (Auto) 48.3, Lymphocytes ( %) (Auto) 35.9, Monocytes (%) (Auto) 12.0H, Eosinophils (%) (Auto) 3.4H, Basophils (%) (Auto) 0.4, Sodium Level 140, Potassium Level 3.5, Chloride Level 103, Carbon Dioxide Level 31, Anion Gap 6, Blood Urea Nitrogen 13, Creatinine 0.7, Estimat Glomerular Filtration Rate , Glucose Level 85, Calcium Level 8.8 Current Medications Medications (Trade) Dose Ordered Sig/Dilia Route PRN Reason Start Time Stop Time Status Last Admin Dose Admin Acetaminophen (Tylenol) 650 mg Q4H PRN ORAL fever 01/12/18 01:15 02/07/18 21:14 Al Hydroxide/Mg Hydroxide (Mylanta II) 30 ml Q6H PRN ORAL dyspepsia 01/12/18 03:15 02/07/18 21:14 Amlodipine Besylate (Norvasc) 2.5 mg DAILY ORAL 01/12/18 09:00 02/09/18 08:59 Dextrose (Dextrose 50%) STAT PRN IV Hypoglycemia 01/12/18 21:15 02/07/18 21:14 Divalproex Sodium (Depakote) 250 mg EVERY 12 HOURS ORAL 01/12/18 09:00 02/08/18 11:59 Heparin Sodium (Porcine) (Heparin 5000 units/ml) 5,000 units EVERY 12 HOURS SUBQ 01/12/18 09:00 02/08/18 08:59 Insulin Aspart (NovoLOG) BEFORE MEALS AND HS SUBQ 01/12/18 06:30 02/08/18 06:29 Lorazepam (Ativan 2mg/ml 1ml) 0.5 mg Q4H PRN IV For Anxiety 01/12/18 01:15 01/15/18 21:14 Ondansetron HCl (Zofran) 4 mg Q6H PRN IVP Nausea & Vomiting 01/12/18 03:15 02/07/18 21:14 Polyethylene Glycol (Miralax) 17 gm HSPRN PRN ORAL Constipation 01/12/18 21:15 02/07/18 21:14 Risperidone (RisperDAL) 3 mg BID ORAL 01/12/18 09:00 02/08/18 08:59 Zolpidem Tartrate (Ambien) 5 mg HSPRN PRN ORAL Insomnia 01/12/18 21:15 01/15/18 21:14 Rosalinda Edouard MD Jan 12, 2018 15:10
[2018-01-12 20:00] VITALS: BP 167/97
--- NOTE | 2018-01-12 21:01 | Progress Note ---
DATE: 01/12/2018 SUBJECTIVE: The patient is a 77-year-old male patient. This patient is very confused and disorganized. Mood is labile. So, his attending physician has requested daily psychiatric consultation to stabilize this patient's mood lability. He is in the hospital because of altered level of consciousness . MENTAL STATUS EXAMINATION: The patient is a 77-year-old male with psychomotor retardation. Mood is irritable and agitated. Affect is guarded and restricted. Thought process, disorganized and illogical. No signs of suicidal or homicidal thoughts. Insight and judgement is poor. DIAGNOSIS: Schizoaffective, bipolar type. PLAN: Treatment with Depakote 250 mg twice a day, Ativan 0.5 mg q.6 h. p.r.n. anxiety and agitation, and Risperdal 3 mg twice a day. Provided 18 to 20 minutes of supportive therapy. Chart was reviewed and discussed with staff. Seen and assessed in his room. Alexandra Santizo M.D. DR: NANCY JOB#: [id number] CC:
[2018-01-12] MEDS ORDERED: Zolpidem 5mg tab ORAL PRN (21:15)
[2018-01-12] MEDS ORDERED: Miralax 17gm pkt ORAL PRN (21:15)
[2018-01-13 04:00] VITALS: BP 131/81
[2018-01-13] MEDS: NovoLOG Insulin Flexpen SUBQ SCH ×3 (06:30→16:30)
[2018-01-13 07:49] LABS: BASOPHILS % (AUTO) 0.6 % (0.0-2.0); EOSINOPHILS % (AUTO) 2.5 % (0.0-3.0); HEMATOCRIT 36.5 % (42.0-52.0); HEMOGLOBIN 12.4 G/DL (14.2-18.0); LYMPHOCYTES % (AUTO) 35.5 % (20.0-45.0); MEAN CORPUSCULAR VOLUME 95 FL (80-99); NEUTROPHILS % (AUTO) 49.3 % (45.0-75.0); PLATELET COUNT 155 K/UL (150-450); RED BLOOD COUNT 3.85 M/UL (4.70-6.10); RED CELL DISTRIBUTION WIDTH 11.9 % (11.6-14.8); WHITE BLOOD COUNT 3.8 K/UL (4.8-10.8)
[2018-01-13 08:00] VITALS: BP 131/79
[2018-01-13 08:30] LABS: ANION GAP 8 mmol/L (5-15); BLOOD UREA NITROGEN 12 mg/dL (7-18); CALCIUM 8.6 MG/DL (8.5-10.1); CARBON DIOXIDE 30 MMOL/L (21-32); CHLORIDE 102 MMOL/L (98-107); CREATININE 0.6 MG/DL (0.55-1.30); POTASSIUM 3.4 MMOL/L (3.5-5.1); SODIUM 140 MMOL/L (136-145)
[2018-01-13] MEDS: Heparin 5000 units/ml inj SUBQ SCH (09:00)
--- NOTE | 2018-01-13 11:39 | Nephrology Progress Note ---
Assessment/Plan Assessment 1. Hypokalemia. 2. Hypotension. 3. Prerenal azotemia. 4. Urinary tract infection. 5. Altered level of consciousness. Plan replace electrolyte as need it mentoring electrolyte avoid NSAID monitoring renal function closely Subjective Constitutional: Reports: no symptoms HEENT: Reports: no symptoms Genitourinary: Reports: no symptoms Neurologic/Psychiatric: Reports: no symptoms Subjective alert and awake no complaints Objective Objective Last 24 Hour Vital Signs Date Time Temp Pulse Resp B/P (MAP) Pulse Ox O2 Delivery O2 Flow Rate FiO2 01/13/18 10:05 76 131/79 01/13/18 08:00 98.2 76 18 131/79 96 98.2 01/13/18 04:00 98.2 68 19 131/81 97 Room Air 98.2 01/13/18 00:00 Room Air 01/12/18 20:00 98.3 68 20 167/97 95 Room Air 98.3 01/12/18 12:00 98.7 79 21 144/89 99 Room Air 98.7 Intake and Output 01/12/18 01/13/18 19:00 07:00 Intake Total 1080 ml 1000 ml Balance 1080 ml 1000 ml Intake Oral 1080 ml 1000 ml # Voids 5 5 Laboratory Tests 01/13/18 06:35: White Blood Count 3.8L, Red Blood Count 3.85L, Hemoglobin 12.4L, Hematocrit 36.5L, Mean Corpuscular Volume 95, Mean Corpuscular Hemoglobin 32.3H, Mean Corpuscular Hemoglobin Concent 34.1, Red Cell Distribution Width 11.9, Platelet Count 155, Mean Platelet Volume 7.4, Neutrophils (%) (Auto) 49.3, Lymphocytes (% ) (Auto) 35.5, Monocytes (%) (Auto) 12.0H, Eosinophils (%) (Auto) 2.5, Basophils (%) (Auto) 0.6, Sodium Level 140, Potassium Level 3.4L, Chloride Level 102, Carbon Dioxide Level 30, Anion Gap 8, Blood Urea Nitrogen 12, Creatinine 0.6, Estimat Glomerular Filtration Rate , Glucose Level 78, Calcium Level 8.6 Height (Feet): 6 Height (Inches): 0.00 Weight (Pounds): 200 Objective HEAD AND NECK: No JVP. No LAD. No thyromegaly. Extraocular movement intact. Pupils are reactive to light and accommodation. LUNGS: Clear to auscultation. CARDIAC: Regular rate and rhythm. S1 and S2. No murmur. No gallop. ABDOMEN: soft, nontender, nondistended. EXTREMITIES: No edema. No clubbing. No cyanosis. NEUROLOGIC: Cranial nerves II to XII within normal limits. Upper and lower extremities are grossly intact. JESUS SHEPARD Jan 13, 2018 11:39
[2018-01-13 12:00] VITALS: BP 159/99
[2018-01-13] MEDS ORDERED: AMBIEN5 MG ORAL (12:55)
[2018-01-13] MEDS ORDERED: ATIVAN0.5 MG ORAL (12:55)
[2018-01-13] MEDS ORDERED: DEPAKOTE250 MG PO (12:56)
--- NOTE | 2018-01-13 13:50 | General Progress Note ---
Assessment/Plan Problem List: (1) UTI (urinary tract infection) ICD Codes: N39.0 - Urinary tract infection, site not specified SNOMED: 58070979 (2) Anemia ICD Codes: D64.9 - Anemia, unspecified SNOMED: 808681289 (3) Altered level of consciousness ICD Codes: R40.4 - Transient alteration of awareness SNOMED: 6605817 (4) Hypotension ICD Codes: I95.9 - Hypotension, unspecified SNOMED: 85292008, 919416742 Qualifiers: Qualified Codes: I95.89 - Other hypotension (5) Renal insufficiency ICD Codes: N28.9 - Disorder of kidney and ureter, unspecified SNOMED: 027778846, 279117845 (6) Pleural effusion, left ICD Codes: J90 - Pleural effusion, not elsewhere classified SNOMED: 81690073 (7) Diabetes mellitus ICD Codes: E11.9 - Type 2 diabetes mellitus without complications SNOMED: 45639180 (8) Hypokalemia ICD Codes: E87.6 - Hypokalemia SNOMED: 24372241, 677279847 Status: stable, progressing, tolerating diet Assessment/Plan o2 pulm tx abx ot pt diet dc if clear Subjective Constitutional: Reports: weakness Allergies: Coded Allergies: PENICILLINS (Verified Allergy, Unknown, 01/08/18) All Systems: reviewed and negative except above Subjective sleepy calm in bed Objective Last 24 Hour Vital Signs Date Time Temp Pulse Resp B/P (MAP) Pulse Ox O2 Delivery O2 Flow Rate FiO2 01/13/18 12:00 98.0 70 19 159/99 95 98.0 01/13/18 10:05 76 131/79 01/13/18 08:00 98.2 76 18 131/79 96 98.2 01/13/18 04:00 98.2 68 19 131/81 97 Room Air 98.2 01/13/18 00:00 Room Air 01/12/18 20:00 98.3 68 20 167/97 95 Room Air 98.3 Intake and Output 01/12/18 01/13/18 19:00 07:00 Intake Total 1080 ml 1000 ml Balance 1080 ml 1000 ml Intake Oral 1080 ml 1000 ml # Voids 5 5 Laboratory Tests 01/13/18 06:35: White Blood Count 3.8L, Red Blood Count 3.85L, Hemoglobin 12.4L, Hematocrit 36.5L, Mean Corpuscular Volume 95, Mean Corpuscular Hemoglobin 32.3H, Mean Corpuscular Hemoglobin Concent 34.1, Red Cell Distribution Width 11.9, Platelet Count 155, Mean Platelet Volume 7.4, Neutrophils (%) (Auto) 49.3, Lymphocytes (% ) (Auto) 35.5, Monocytes (%) (Auto) 12.0H, Eosinophils (%) (Auto) 2.5, Basophils (%) (Auto) 0.6, Sodium Level 140, Potassium Level 3.4L, Chloride Level 102, Carbon Dioxide Level 30, Anion Gap 8, Blood Urea Nitrogen 12, Creatinine 0.6, Estimat Glomerular Filtration Rate , Glucose Level 78, Calcium Level 8.6 Height (Feet): 6 Height (Inches): 0.00 Weight (Pounds): 200 General Appearance: lethargic EENT: normal ENT inspection Neck: normal alignment Cardiovascular: normal peripheral pulses, normal rate, regular rhythm Respiratory/Chest: chest wall non-tender, lungs clear, normal breath sounds Abdomen: normal bowel sounds, non tender, soft Extremities: normal inspection Edema: no edema noted Arm (L), no edema noted Arm (R), no edema noted Leg (L), no edema noted Leg (R), no edema noted Pedal (L), no edema noted Pedal (R), no edema noted Generalized Neurologic: motor weakness Skin: normal pigmentation, warm/dry MYKE WHIPPLE Jan 13, 2018 13:50
[2018-01-13 16:00] VITALS: BP 133/88
--- NOTE | 2018-01-13 16:22 | Pulmonology Progress Note ---
Assessment/Plan Assessment/Plan ASSESSMENT acute encephalopathy ( possibly due to psych meds) on chronic psychiatric disorder DM OTIS likely due to dehydration /medications - resolved Hypotension -resolved mild pulmonary HTN e/lyte imbalance ( hypo K, hypo Mg) schizoaffective disorder bipolar type HLD hx of craniotomy PLAN OF CARE MS floor CT head no acute IC pathology neuro follows CXR with L base pleural and parenchymal disease, likely chronic O2 HHN prn hemodynamically stable BP responded to IVF initially cardio follows ECHO with pEF 60-65% and RVSP of 42 c/w mild pulmonary HTN as well as mild LVH lytes replaced nephro follows renal parameters down to normal likely due to dehydration/prerenal azotemia avoid nephrotoxic lipid panel stable psych followed psych med regimen optimized sitter at the bedside for safety at all times stable for dc to specialized psych B&C case discussed and evaluated by supervising physician Subjective Allergies: Coded Allergies: PENICILLINS (Verified Allergy, Unknown, 01/08/18) Subjective denies chest pain, SOB on RA pulse ox stable engaged in conversation with restricted affect sitter at the bedside Objective Last 24 Hour Vital Signs Date Time Temp Pulse Resp B/P (MAP) Pulse Ox O2 Delivery O2 Flow Rate FiO2 01/13/18 12:00 98.0 70 19 159/99 95 98.0 01/13/18 10:05 76 131/79 01/13/18 08:00 98.2 76 18 131/79 96 98.2 01/13/18 04:00 98.2 68 19 131/81 97 Room Air 98.2 01/13/18 00:00 Room Air 01/12/18 20:00 98.3 68 20 167/97 95 Room Air 98.3 Intake and Output 01/12/18 01/13/18 19:00 07:00 Intake Total 1080 ml 1000 ml Balance 1080 ml 1000 ml Intake Oral 1080 ml 1000 ml # Voids 5 5 General Appearance: no acute distress HEENT: normocephalic, atraumatic, anicteric, mucous membranes moist Respiratory/Chest: lungs clear, no accessory muscle use Cardiovascular: normal rate, no JVD Abdomen: normal bowel sounds, soft, non tender Extremities: no edema, pedal pulses normal Neurologic/Psychiatric: alert, responsive, other - Affect guarded and restricted. Thought illogical Musculoskeletal: normal muscle bulk Laboratory Tests 01/13/18 06:35: White Blood Count 3.8L, Red Blood Count 3.85L, Hemoglobin 12.4L, Hematocrit 36.5L, Mean Corpuscular Volume 95, Mean Corpuscular Hemoglobin 32.3H, Mean Corpuscular Hemoglobin Concent 34.1, Red Cell Distribution Width 11.9, Platelet Count 155, Mean Platelet Volume 7.4, Neutrophils (%) (Auto) 49.3, Lymphocytes (% ) (Auto) 35.5, Monocytes (%) (Auto) 12.0H, Eosinophils (%) (Auto) 2.5, Basophils (%) (Auto) 0.6, Sodium Level 140, Potassium Level 3.4L, Chloride Level 102, Carbon Dioxide Level 30, Anion Gap 8, Blood Urea Nitrogen 12, Creatinine 0.6, Estimat Glomerular Filtration Rate , Glucose Level 78, Calcium Level 8.6 Current Medications Medications (Trade) Dose Ordered Sig/Dilia Route PRN Reason Start Time Stop Time Status Last Admin Dose Admin Acetaminophen (Tylenol) 650 mg Q4H PRN ORAL fever 01/12/18 01:15 02/07/18 21:14 Al Hydroxide/Mg Hydroxide (Mylanta II) 30 ml Q6H PRN ORAL dyspepsia 01/12/18 03:15 02/07/18 21:14 Amlodipine Besylate (Norvasc) 2.5 mg DAILY ORAL 01/12/18 09:00 02/09/18 08:59 01/13/18 10:05 Dextrose (Dextrose 50%) STAT PRN IV Hypoglycemia 01/12/18 21:15 02/07/18 21:14 Divalproex Sodium (Depakote) 250 mg EVERY 12 HOURS ORAL 01/12/18 09:00 02/08/18 11:59 01/13/18 10:08 Heparin Sodium (Porcine) (Heparin 5000 units/ml) 5,000 units EVERY 12 HOURS SUBQ 01/12/18 09:00 02/08/18 08:59 Insulin Aspart (NovoLOG) BEFORE MEALS AND HS SUBQ 01/12/18 06:30 02/08/18 06:29 Lorazepam (Ativan 2mg/ml 1ml) 0.5 mg Q4H PRN IV For Anxiety 01/12/18 01:15 01/15/18 21:14 Ondansetron HCl (Zofran) 4 mg Q6H PRN IVP Nausea & Vomiting 3/22/18 03:15 02/07/18 21:14 Polyethylene Glycol (Miralax) 17 gm HSPRN PRN ORAL Constipation 01/12/18 21:15 02/07/18 21:14 Risperidone (RisperDAL) 3 mg BID ORAL 01/12/18 09:00 02/08/18 08:59 01/13/18 10:05 Zolpidem Tartrate (Ambien) 5 mg HSPRN PRN ORAL Insomnia 01/12/18 21:15 01/15/18 21:14 [facility]Jessica NP Jan 13, 2018 16:22
--- NOTE | 2018-01-14 19:00 | Progress Note ---
DATE: 01/13/2018 PSYCHOTHERAPY CONSULTATION PROGRESS NOTE TREATING ATTENDING PHYSICIAN: Kalpesh Howard D.O. SUBJECTIVE: This patient is a 77-year-old male patient. The patient has been helpless, hopeless, and restless. Denies suicidal or homicidal thoughts of ideation. Denies any auditory or visual hallucinations. He is confused and disorganized. MENTAL STATUS EXAMINATION: The patient is alert and oriented to person and place. Mood is dysphoric. Affect blunted. Thought process disorganized. DIAGNOSIS: Schizoaffective disorder, depressed type. PLAN: This clinician assessed this patient, assessed this patient's mental status. Provided the patient with reality orientation. Provide the patient with supportive psychotherapy. disorganized thought process and encouraging the patient to participate in treatment milieu. Continue with behavioral management. This clinician has reviewed the patient's chart and discussed the treatment with treatment team. Bibi Judge PsyD. : Jose JOB#: [id number] CC:
--- NOTE | 2018-01-16 10:44 | Discharge Summary ---
Discharge Summary Hospital Course Date of Admission Jan 08, 2018 at 16:52 Date of Discharge Jan 13, 2018 at 18:20 Admitting Diagnosis ALOC/hypotension HPI Rigo Espinoza is a 77 year old male who was admitted on Jan 08, 2018 at 16: 52 for Altered Level Of Conscious, Hypotension Hospital Course dc summary #[id number] Discharge Medications Continued Medications: Amlodipine Besylate* (Amlodipine Besylate*) 2.5 Mg Tablet 2.5 MG ORAL DAILY, TAB (This prescription has been renewed) Aspirin* (Aspir-Low*) 81 Mg Tablet.dr 81 MG ORAL DAILY, TAB (This prescription has been renewed) Cholecalciferol (Vitamin D3)* (Vitamin D*) 1,000 Unit Tablet 1000 UNIT ORAL DAILY, #30 TAB (This prescription has been renewed) Divalproex Sodium* (Depakote*) 250 Mg Tablet.dr 250 MG PO Q12HR, TAB (This prescription has been renewed) Docusate Sodium* (Docusate Sodium*) 100 Mg Capsule 100 MG ORAL TWICE A DAY, CAP (This prescription has been renewed) Lorazepam* (Ativan*) 0.5 Mg Tablet 0.5 MG ORAL EVERY 4 HOURS for anxiety, TAB (This prescription has been renewed) Metformin Hcl* (Metformin Hcl*) 500 Mg Tablet 500 MG ORAL TWICE A DAY, TAB (This prescription has been renewed) Risperidone* (Risperdal*) 2 Mg Tablet 3 MG ORAL BID, #30 TAB 0 Refills (This prescription has been renewed) Zolpidem Tartrate* (Ambien*) 5 Mg Tablet 5 MG ORAL BEDTIME PRN for Insomnia, TAB (This prescription has been renewed) Discharge Condition Upon Discharge: stable Discharge Disposition Patient was discharged to [facility] () Jessica Sparks NP ([place]) Jan 16, 2018 10:44
--- NOTE | 2018-01-17 01:01 | Discharge Summary 2 SIG ---
DATE OF ADMISSION: 01/08/2018 DATE OF DISCHARGE: 01/13/2018 REASON FOR ADMISSION: The patient is a 77-year-old male with a history of hypertension, diabetes, hyperlipidemia, and schizophrenia, presented to emergency department from assisted living with altered level of consciousness along with apparent unwitnessed syncopal episode. Upon evaluation, blood pressure was low. The patient had elevated lactic acid of 4.3 and potassium was 2.9. He showed evidence of renal insufficiency with BUN of [address] of the head revealed no acute intracranial bleeding or mass effect, but shows chronic age related changes along with evidence of multiple prior medina holes. Chest x-ray revealed left basilar pleural and parenchymal disease, indeterminate acuity and presence of pleural calcifications suggesting a chronic component. The patient was admitted with diagnoses of altered level of consciousness, unwitnessed syncopal episode, hypotension, left pleural effusion, renal insufficiency, elevated lactic acid, hypokalemia, and diabetes mellitus. Of note, troponin was negative. Ammonia level 27. HOSPITAL COURSE: The patient was admitted. Cardiology, Nephrology, Neurology, Pulmonary, and Psych consults were requested. The patient subsequently undergone echo. Supplemental oxygen provided as needed to keep pulse oximetry above 92%. The patient was given fluid challenge and blood pressure responded to fluid challenge. The patient undergone echocardiogram, which revealed preserved ejection fraction of 60% to 65%, mild left ventricular hypertrophy, and right ventricular systolic pressure of 42 consistent with mild pulmonary hypertension. Per Cardiology, the patient's unwitnessed syncope was related to dehydration. The patient was hypokalemic with acute renal insufficiency and low blood pressure. Blood pressure responded to one liter of normal saline and blood pressure became stable. Antihypertensives were on hold. Hemodynamic status was closely monitored. The patient eventually was transferred to Med/Surg floor. Day Care Assistant closely followed. Electrolytes were replaced as needed. Nephrotoxics were avoided. Prior to discharge stable, potassium and renal parameters down to normal. Lactic acid down to normal. Nephrotoxics were avoided. Lipid panel was stable. Psychiatrist closely followed. Psychiatrist diagnosed the patient with schizoaffective disorder, bipolar type and optimized psychiatric medication regimen. Sitter was at the bedside at all times for safety. Per neurologist, the patient likely had a craniotomy in the past due to the evidence of multiple medina holes on the CT. He recommended to add Depakote to the regimen, which has antipsychotic and anticonvulsant therapy. The patient's clinical condition subsequently was improved and the patient was working with physical and occupational therapy. The patient subsequently was discharged to assisted living. DVT prophylaxis provided. Blood sugar was managed with sliding scale of insulin. FINAL DIAGNOSES: 1. Acute encephalopathy, possibly due to the psych medications along with dehydration on chronic psychiatric disorder. 2. Unwitnessed syncopal episode likely due to dehydration, resolved. 3. Acute kidney injury likely due to dehydration/medication, resolved. 4. Hypertension, resolved. 5. Diabetes mellitus. 6. Mild pulmonary hypertension. 7. Electrolyte imbalance (hypokalemia and hypomagnesemia). 8. Schizoaffective disorder, bipolar type. 9. Hyperlipidemia. 10. History of craniotomy. DISCHARGE MEDICATIONS: See medication reconciliation list. DISCHARGE INSTRUCTIONS: The patient was discharged to assisted living. Follow up with primary care provider. Of note, lipid panel was within normal limits. Kalpesh Howard D.O. I have been assigned to dictate discharge summary on this account and I was not involved in the patient's management. Jessica multanibhupendra N.PEunice DR: BETH JOB#: [id number] CC:
== END 2018-01-13 18:20 | disposition home or self-care (01) | DRG 640 ==
LOC: EDBD 15:27 → EDBEDREQ 15:47 → EMR 16:00 → 2E 16:52 → EDBEDREQ 22:02 → 2E 01-09 15:53 → 4E 01-11 22:36
DX: E86.0 Dehydration (principal); G93.40 Encephalopathy, unspecified; N17.9 Acute kidney failure, unspecified; I95.9 Hypotension, unspecified; I27.20 Pulmonary hypertension, unspecified; N39.0 Urinary tract infection, site not specified; F25.0 Schizoaffective disorder, bipolar type; F03.90 Unspecified dementia, unspecified severity, without behavioral disturbance, psychotic disturbance, mood disturbance, and anxiety; E11.9 Type 2 diabetes mellitus without complications; D64.9 Anemia, unspecified; I10 Essential (primary) hypertension; E83.42 Hypomagnesemia; E87.6 Hypokalemia; Z88.0 Allergy status to penicillin; Z79.4 Long term (current) use of insulin; E78.5 Hyperlipidemia, unspecified; R55 Syncope and collapse; Z98.890 Other specified postprocedural states
CPT/HCPCS: 36415; 70450; 71045; 80048; 80053; 80061; 80307; 80329; 81003; 82043; 82044; 82140; 82550; 82570; 82962; 83605; 83735; 83880; 84100; 84300; 84443; 84484; 85025; 85610; 85730; 87081; 89050; 93005; 93306; 99285; J1815; J8499